=== PATIENT | male | born 1965 | race Caucasian/White ===

== ENCOUNTER 2016-10-29 13:25 | Emergency (ER) | payer MEDICARE ==
[2016-10-29 13:36] VITALS: BP 132/66; PULSE 77; TEMP 97.6; BMI 63.2
--- NOTE | 2016-10-29 14:06 | PDOC ---
History of Present Illness <Antony Foley - Last Filed: 10/29/16 14:39> - History of Present Illness Initial Comments: 10/29/16 14:38 The patient is a 51 year old male with a past medical hx of diabetes, HTN who presents to the ED for evaluation of low blood gas levels. The patient reports he is planning on having gastric sleeve surgery and notes he must get clearance from many doctors so he went to his [facility] today for clearance. The patient was given a prescription to have his blood gas levels measured. His levels were low and he was sent to the ED evaluation. The patient reports he feels fine and only feels short of breath only on exertion. The patient denies fever, chills, headache, dizziness, chest pain The patient denies nausea, vomiting, abdominal pain Allergies: NKDA Social: Denies tobacco use <Xiomy Hernandez - Last Filed: 10/29/16 14:45> - General Chief Complaint: Shortness of Breath Stated Complaint: SOB (PCP SENT) Time Seen by Provider: 10/29/16 14:06 Past History - Past Medical History Anemia: No Asthma: No Cancer: No Cardiac Disorders: No CVA: No COPD: No CHF: No Dementia: No Diabetes: Yes GI Disorders: No Disorders: No HTN: Yes Hypercholesterolemia: Yes Liver Disease: No Psychiatric Problems: Yes Seizures: No Thyroid Disease: No - Surgical History Abdominal Surgery: Yes (LAP BAND.) Cholecystectomy: Yes - Psycho/Social/Smoking Cessation Hx Anxiety: No Suicidal Ideation: No Smoking History: Never smoked Have you smoked in the past 12 months: No Hx Alcohol Use: Yes (SOCIAL) Drug/Substance Use Hx: No Substance Use Type: None <Antony Foley - Last Filed: 10/29/16 14:39> <Xiomy Hernandez - Last Filed: 10/29/16 14:45> - Past Medical History Allergies/Adverse Reactions: Allergies Allergy/AdvReac Type Severity Reaction Status Date / Time No Known Allergies Allergy Verified 10/29/16 13:36 Home Medications: Ambulatory Orders Aripiprazole [Abilify] 5 mg PO DAILY 07/26/14 Atenolol [Tenormin -] 50 mg PO DAILY 07/26/14 Bupropion HCl [Wellbutrin Xl -] 300 mg PO DAILY 07/26/14 Fluoxetine HCl [Prozac -] 40 mg PO DAILY 07/26/14 Simvastatin [Zocor -] 20 mg PO HS 07/26/14 Metformin HCl 500 mg PO DAILY 10/29/16 Oxycodone HCl/Acetaminophen [Percocet 5-325 mg Tablet] 2 tab PO PRN 10/29/16 Review of Systems - Review of Systems Able to Perform ROS?: Yes Comments:: 10/29/16 14:38 GENERAL/CONSTITUTIONAL: No fever or chills. No weakness. HEAD, EYES, EARS, NOSE AND THROAT: No change in vision. No ear pain or discharge. No sore throat. CARDIOVASCULAR: No chest pain or shortness of breath. RESPIRATORY: +Dyspnea on exertion No cough, wheezing, or hemoptysis. GASTROINTESTINAL: No nausea, vomiting, diarrhea or constipation. GENITOURINARY: No dysuria, frequency, or change in urination. MUSCULOSKELETAL: No joint or muscle swelling or pain. No neck or back pain. SKIN: No rash NEUROLOGIC: No headache, vertigo, loss of consciousness, or change in strength/ sensation. ENDOCRINE: No increased thirst. No abnormal weight change. HEMATOLOGIC/LYMPHATIC: No anemia, easy bleeding, or history of blood clots. ALLERGIC/IMMUNOLOGIC: No hives or skin allergy. <Xiomy Hernandez - Last Filed: 10/29/16 14:45> *Physical Exam - Vital Signs Last Vital Signs Temp Pulse Resp BP Pulse Ox 97.6 F 77 20 132/66 90 L 10/29/16 13:31 10/29/16 13:31 10/29/16 13:31 10/29/16 13:31 10/29/16 13:31 <Antony Foley - Last Filed: 10/29/16 14:39> - Vital Signs Last Vital Signs Temp Pulse Resp BP Pulse Ox 97.6 F 77 20 132/66 92 L 10/29/16 13:31 10/29/16 13:31 10/29/16 13:31 10/29/16 13:31 10/29/16 14:35 - Physical Exam Comments: 10/29/16 14:39 GENERAL: Awake, alert, and fully oriented, in no acute distress HEAD: No signs of trauma EYES: PERRLA, EOMI, sclera anicteric, conjunctiva clear ENT: Auricles normal inspection, hearing grossly normal, nares patent, oropharynx clear without exudates. Moist mucosa NECK: Normal ROM, supple, no lymphadenopathy, JVD, or masses LUNGS:+Wheezing in all lung curiel. No crackles HEART: Regular rate and rhythm, normal S1 and S2, no murmurs, rubs or gallops ABDOMEN: +Obese. Soft, nontender, normoactive bowel sounds. No guarding, no rebound. No masses EXTREMITIES: Normal range of motion, no edema. No clubbing or cyanosis. No cords, erythema, or tenderness NEUROLOGICAL: Cranial nerves II through XII grossly intact. Normal speech, normal gait SKIN: Warm, Dry, normal turgor, no rashes or lesions noted. <Xiomy Hernandez - Last Filed: 10/29/16 14:45> Medical Decision Making - Medical Decision Making 10/29/16 14:45 The patient is a 51 year old male with a past medical hx of diabetes, HTN who presents to the ED for evaluation of low blood gas levels. The patient reports he was given a prescription by the [facility] to have his blood gas levels measured. The patient had his levels measured today, which were found to be low. The patients levels were found to be pH: 7.3, pCO2: 53, pO2: 52, HCO3: 26. The patient was sent to the ED for further evaluation. Called Dr. Guzman (patients [facility]) and discussed the patient's case. Dr. Guzman reports he did not see the patient in the office today but will see the patient tomorrow morning at 10. The patient agrees to this plan for discharge and will follow up with Dr. Guzman in the morning. The patient understand and agrees to this plan for discharge. All questions answered. <Xiomy Hernandez - Last Filed: 10/29/16 14:45> *DC/Admit/Observation/Transfer - Discharge Dispostion Admit: No - Attestations Physician Attestion: 10/29/16 14:06 I, Dr. Antony Foley, attest that this document has been prepared under my direction and personally reviewed by me in its entirety. I further attest, that it accurately reflects all work, treatment, procedures and medical decision -making performed by me. <Antony Foley - Last Filed: 10/29/16 14:39> - Attestations Scribe Attestion: 10/29/16 14:38 Documentation prepared by Xiomy Hernandez, acting as medical asst for Antony Foley MD/DO. <Xiomy Hernandez - Last Filed: 10/29/16 14:45> Diagnosis at time of Disposition: Hypoxia, COPD mixed type - Discharge Dispostion Disposition: HOME - Referrals Referrals: Svetlana Etienne MD [Primary Care Provider] - Nino Guzman MD [Staff Physician] - - Patient Instructions Printed Discharge Instructions: DI for Chronic Obstructive Pulmonary Disease Additional Instructions: Nino, Your oxygen level in your blood is low. It is most probably low most of the time. This needs to be sorted out more fully by your computer repair engineer. See him in his office tomorrow at 10:00AM. Return to us if any problems. Best- Dr. Antony Foley
== END 2016-10-29 14:51 | disposition home or self-care (01) ==
LOC: JER 13:25
DX: R09.02 Hypoxemia (principal); J44.9 Chronic obstructive pulmonary disease, unspecified; E11.9 Type 2 diabetes mellitus without complications; I10 Essential (primary) hypertension; E78.00 Pure hypercholesterolemia, unspecified; F99 Mental disorder, not otherwise specified
CPT/HCPCS: 99282-25

== ENCOUNTER 2016-11-29 11:54 | Emergency (ER) | payer MEDICARE ==
[2016-11-29 12:01] VITALS: BMI 63.2
--- NOTE | 2016-11-29 13:33 | PDOC ---
History of Present Illness - General History Source: Patient Exam Limitations: No Limitations - History of Present Illness Initial Comments: CHIEF COMPLAINT: 51 y/o afebrile, morbidly obese male with PMH HTN, HLD, NIDDM c/o leg swelling and burning. HISTORY OF PRESENT ILLNESS: The patient states he normally has cellulitis of both of his lower extremities but over the past 3 days it has gotten progressively worse and his feet and ankles are burning. He states he also has minimal oozing from the legs. He denies f/c, n/v/d, streaking, cough, hemoptysis, CP, palpitations. Vital signs on arrival are notable for O2 sat of 94% on RA. REVIEW OF SYSTEMS: GENERAL/CONSTITUTIONAL: No fever/chills. No weakness. No weight change. HEAD, EYES, EARS, NOSE AND THROAT: No change in vision. No ear pain or discharge. No sore throat. CARDIOVASCULAR: No chest pain or shortness of breath. RESPIRATORY: No cough, wheezing, or hemoptysis. GASTROINTESTINAL: No abd pain, nausea, vomiting, diarrhea. GENITOURINARY: No dysuria, frequency, or change in urination. MUSCULOSKELETAL: +lower leg swelling and redness. No neck or back pain. SKIN: No rash or easy bruising. NEUROLOGIC: No headache, vertigo, loss of consciousness, or loss of sensation. PHYSICAL EXAM: VITAL_SIGNS: within normal limits GENERAL_APPEARANCE: alert, cooperative, no obvious discomfort. The patient is a morbidly obese, ambulatory male. MENTAL_STATUS: speech clear, oriented X 3, responds appropriately to questions. NEURO: motor intact and sensory intact in injured extremity. EXTREMITIES: non pitting, erythematous edema of bilateral lower extremities up to the knees. Multiple open sores on LEs without active bleeding SKIN: warm, dry, good color. <Liana Cabrera - Last Filed: 11/29/16 18:54> <Sneha Su - Last Filed: 12/01/16 14:28> - General Chief Complaint: Wound Stated Complaint: CELLULITIS, BOTH LEGS Time Seen by Provider: 11/29/16 13:11 Past History - Past Medical History Anemia: No Asthma: No Cancer: No Cardiac Disorders: No CVA: No COPD: No CHF: No Dementia: No Diabetes: Yes GI Disorders: No Disorders: No HTN: Yes Hypercholesterolemia: Yes Liver Disease: No Psychiatric Problems: Yes Seizures: No Thyroid Disease: No Other medical history: obesity - Surgical History Abdominal Surgery: Yes (LAP BAND.) Cholecystectomy: Yes - Psycho/Social/Smoking Cessation Hx Anxiety: No Suicidal Ideation: No Smoking History: Never smoked Have you smoked in the past 12 months: No Information on smoking cessation initiated: No Hx Alcohol Use: No Drug/Substance Use Hx: No Substance Use Type: None <Liana Cabrera - Last Filed: 11/29/16 18:54> <Sneha Su - Last Filed: 12/01/16 14:28> - Past Medical History Allergies/Adverse Reactions: Allergies Allergy/AdvReac Type Severity Reaction Status Date / Time No Known Allergies Allergy Verified 11/29/16 12:01 Home Medications: Ambulatory Orders Aripiprazole [Abilify] 5 mg PO DAILY 07/26/14 Atenolol [Tenormin -] 25 mg PO DAILY 07/26/14 Bupropion HCl [Wellbutrin Xl -] 300 mg PO DAILY 07/26/14 Fluoxetine HCl [Prozac -] 40 mg PO DAILY 07/26/14 Metformin HCl 500 mg PO DAILY 10/29/16 Atorvastatin Calcium [Lipitor] 10 mg PO HS 11/29/16 Cholecalciferol (Vitamin D3) [Vitamin D3 -] 1,000 unit PO DAILY 11/29/16 Clindamycin [Cleocin -] 300 mg PO Q6HPO #28 capsule 11/29/16 Fluticasone/Vilanterol [Breo Ellipta 100-25 Mcg INH] 1 each IH DAILY 11/29/16 Lisinopril [Zestril] 2.5 mg PO DAILY 11/29/16 Multivitamin [Poly-Vitamin] 1 each PO DAILY 11/29/16 Naproxen 500 mg PO BID PRN 11/29/16 Oxycodone HCl/Acetaminophen [Percocet 5-325 mg Tablet] 1 - 2 tab PO Q6H #10 tablet MDD 5 11/29/16 Silver Sulfadiazine [Silvadene] 1 applic TP BID 11/29/16 *Physical Exam - Vital Signs Last Vital Signs Temp Pulse Resp BP Pulse Ox 97.8 F 84 22 153/72 94 L 11/29/16 11:59 11/29/16 11:59 11/29/16 11:59 11/29/16 11:59 11/29/16 11:59 <Liana Cabrera - Last Filed: 11/29/16 18:54> - Vital Signs Last Vital Signs Temp Pulse Resp BP Pulse Ox 98.5 F 89 20 138/82 100 11/29/16 15:55 11/29/16 18:58 11/29/16 18:58 11/29/16 18:58 11/29/16 18:58 <Sneha Su - Last Filed: 12/01/16 14:28> ED Treatment Course - LABORATORY CBC & Chemistry Diagram: 11/29/16 14:25 11/29/16 14:25 <Liana Cabrera - Last Filed: 11/29/16 18:54> - LABORATORY CBC & Chemistry Diagram: 11/29/16 14:25 11/29/16 14:25 - ADDITIONAL ORDERS Additional order review: 11/29/16 14:25 RBC 4.64 MCV 85.7 MCHC 31.9 L RDW 16.4 H MPV 6.6 L Neutrophils % 84.4 H Lymphocytes % 6.9 L D Monocytes % 7.0 Eosinophils % 1.0 Basophils % 0.7 - Medications Given in the ED: ED Medications Discontinued Medications Generic Name Dose Route Start Last Admin Trade Name Doris PRN Reason Stop Dose Admin Clindamycin Phosphate 50 mls @ 100 mls/hr 11/29/16 15:22 11/29/16 15:31 Cleocin 600 Mg Premix Ivpb - IVPB 11/29/16 15:51 100 mls/hr ONCE ONE Administration Oxycodone/Acetaminophen 2 combo 11/29/16 14:06 11/29/16 14:08 Percocet 5/325 - PO 11/29/16 14:07 2 combo ONCE ONE Administration <Sneha Su - Last Filed: 12/01/16 14:28> Medical Decision Making - Medical Decision Making A/P: 51 y/o male with b/l LE edema/cellulitis. Plan is as follows: 1. Labs Elevated WBC count with left shift. Pt is afebrile. Will give first dose of IV clinda Pt asking for pain medication; will give PO Percocet Spoke with Dr. Almanza, bonded strand operator for patient's PCP Dr. Etienne. She would like dopplers of his LEs. If negative she suggests discharge to home with rx for clinda and follow up with Dr. Etienne in his office on Thursday morning. Venous doppler b/l LE IMPRESSION: No evidence of DVT b/l lower extremities. Gave the patient the results. Will discharge to home with fx for clinda and instructed him to take entire course. Informed him that Dr. Etienne wants to see him in the office on Thursday and he confirms he will go. Instructed him to return to the ER with any worsening or concerning symptoms. The patient verbalizes understanding of all instructions, has no further questions and is awaiting discharge. <Liana Cabrera - Last Filed: 11/29/16 18:54> *DC/Admit/Observation/Transfer <Liana Cabrera - Last Filed: 11/29/16 18:54> - Attestations Physician Attestion: I reviewed the case with the mid-level practitioner and agree with the mid- level practitioner's assessment, diagnosis and disposition. <Sneha Su - Last Filed: 12/01/16 14:28> Diagnosis at time of Disposition: Cellulitis Qualifiers: Site of cellulitis: extremity Site of cellulitis of extremity: lower extremity Laterality: unspecified laterality Qualified Code(s): L03.119 - Cellulitis of unspecified part of limb - Discharge Dispostion Disposition: HOME Condition at time of disposition: Good - Prescriptions Prescriptions: Clindamycin [Cleocin -] 300 mg PO Q6HPO #28 capsule Oxycodone HCl/Acetaminophen [Percocet 5-325 mg Tablet] 1 - 2 tab PO Q6H #10 tablet MDD 5 - Referrals Referrals: Svetlana Etienne MD [Primary Care Provider] - (Go to office on Thursday) - Patient Instructions Printed Discharge Instructions: DI for Cellulitis -- Adult Additional Instructions: Discharge Instructions: -Take Clindamycin as prescribed -Take percocet if needed for pain; may cause drowsiness -Dr. Etienne wants to see you in the office on Thursday -Return to the ER immediately with any worsening or concerning symptoms
[2016-11-29] MEDS ORDERED: OXYCODONE/APAP 5/325MG COMBO TABLET PO ONE (14:06)
[2016-11-29] MEDS ORDERED: OXYCODONE/APAP 5/325MG COMBO TABLET ONE (14:07)
[2016-11-29 14:35] LABS: BASOPHIL 0.7 % (0-2.0); MCH 27.3 pg (25.7-33.7); MCHC 31.9 g/dl (32.0-35.9); MEAN CELL VOLUME 85.7 fl (80-96); MEAN PLT VOLUME 6.6 fl (7.5-11.1); NEUTROPHILS 84.4 % (42.8-82.8); PLATELET COUNT 255 K/MM3 (134-434); RDW 16.4 % (11.9-15.9); WHITE BLOOD COUNT 11.2 K/mm3 (4.0-10.0)
[2016-11-29 15:07] LABS: ALBUMIN 3.2 g/dl (3.4-5.0); ALK PHOS 153 U/L (45-117); ANION GAP 10 (8-16); BILIRUBIN,TOTAL 1.3 mg/dL (0.2-1.0); CALCIUM 9.3 mg/dL (8.5-10.1); CO2 28 mmol/L (21-32); COCKROFT - GAULT 248.85; CREATININE 0.9 mg/dL (0.7-1.3); GLUCOSE,RANDOM 87 mg/dL (74-106); SGOT/AST 15 U/L (15-37); SGPT/ALT 14 U/L (12-78); TOT PROT 7.5 g/dl (6.4-8.2)
[2016-11-29] MEDS ORDERED: CLINDAMYCIN 600MG PREMIX IVPB 50 ML IVPB ONE ×2 (15:22→15:30)
[2016-11-29 18:25] VITALS: TEMP 98.5
[2016-11-29 18:58] VITALS: BP 138/82; PULSE 89
== END 2016-11-29 18:59 | disposition home or self-care (01) ==
LOC: JER 11:54
DX: L03.116 Cellulitis of left lower limb (principal); L03.115 Cellulitis of right lower limb; I10 Essential (primary) hypertension; E11.9 Type 2 diabetes mellitus without complications; Z79.84 Long term (current) use of oral hypoglycemic drugs; E78.00 Pure hypercholesterolemia, unspecified; E66.01 Morbid (severe) obesity due to excess calories; Z68.44 Body mass index [BMI] 60.0-69.9, adult
CPT/HCPCS: 36415; 80053; 85025; 93970-TC; 96365; 99284-25

== ENCOUNTER 2016-12-22 04:53 | Inpatient (IN) | payer MEDICARE, OTHER ==
--- NOTE | 2016-12-22 05:20 | PDOC ---
History of Present Illness - General History Source: Patient Exam Limitations: No Limitations - History of Present Illness Initial Comments: 12/22/16 06:02 The patient is a 51 year old male with a past medical history of NIDDM, HTN, COPD, emphysema and hld who presents to the ED for bilateral lower extremity cellulitis. Patient reports that he was seen by Dr. Etienne and was told that he needed to present to the ED for IV abx for cellulitis. Patient states that he went fishing on 4 days ago instead. He states that his legs got numb. He notes that he cannot ambulate and has been bedridden for 2 days. Patient was trying to use the shower today and wash his legs as he began to feel lightheaded. Patient reports bilateral LE redness and swelling.. He states that he took percocet to alleviate the pain. The patient denies fever, chills, headache, dizziness, chest pain The patient denies nausea, vomiting, abdominal pain Allergies: NKDA Social: Denies tobacco use PCP: Dr. Etienne <Nguyen Guillen - Last Filed: 12/22/16 07:00> <Yudy Noel - Last Filed: 12/26/16 19:51> - General Stated Complaint: LEG PAIN Time Seen by Provider: 12/22/16 05:01 Past History <Nguyen Guillen - Last Filed: 12/22/16 07:00> - Past Medical History Anemia: No Asthma: No Cancer: No Cardiac Disorders: No CVA: No COPD: No CHF: No Dementia: No Diabetes: Yes GI Disorders: No Disorders: No HTN: Yes Hypercholesterolemia: Yes Liver Disease: No Psychiatric Problems: Yes Seizures: No Thyroid Disease: No - Surgical History Abdominal Surgery: Yes (LAP BAND.) Cholecystectomy: Yes - Psycho/Social/Smoking Cessation Hx Anxiety: No Suicidal Ideation: No Smoking History: Never smoked Have you smoked in the past 12 months: No Hx Alcohol Use: No Drug/Substance Use Hx: No Substance Use Type: None <Yudy Noel - Last Filed: 12/26/16 19:51> - Past Medical History Allergies/Adverse Reactions: Allergies Allergy/AdvReac Type Severity Reaction Status Date / Time No Known Allergies Allergy Verified 11/29/16 12:01 Home Medications: Ambulatory Orders Aripiprazole [Abilify] 5 mg PO DAILY 07/26/14 Atenolol [Tenormin -] 25 mg PO DAILY 07/26/14 Bupropion HCl [Wellbutrin Xl -] 300 mg PO DAILY 07/26/14 Fluoxetine HCl [Prozac -] 40 mg PO DAILY 07/26/14 Metformin HCl 500 mg PO DAILY 10/29/16 Atorvastatin Calcium [Lipitor] 10 mg PO HS 11/29/16 Cholecalciferol (Vitamin D3) [Vitamin D3 -] 1,000 unit PO DAILY 11/29/16 Fluticasone/Vilanterol [Breo Ellipta 100-25 Mcg INH] 1 each IH DAILY 11/29/16 Lisinopril [Zestril] 2.5 mg PO DAILY 11/29/16 Multivitamin [Poly-Vitamin] 1 each PO DAILY 11/29/16 Oxycodone HCl/Acetaminophen [Percocet 5-325 mg Tablet] 1 - 2 tab PO Q6H #10 tablet MDD 5 11/29/16 Silver Sulfadiazine [Silvadene] 1 applic TP BID 11/29/16 Review of Systems - Review of Systems Able to Perform ROS?: Yes Comments:: 12/22/16 06:03 GENERAL/CONSTITUTIONAL: No fever or chills. No weakness. HEAD, EYES, EARS, NOSE AND THROAT: No change in vision. No ear pain or discharge. No sore throat. CARDIOVASCULAR: No chest pain or shortness of breath. RESPIRATORY: No cough, wheezing, or hemoptysis. GASTROINTESTINAL: No nausea, vomiting, diarrhea or constipation. GENITOURINARY: No dysuria, frequency, or change in urination. MUSCULOSKELETAL: No joint or muscle swelling or pain. No neck or back pain. SKIN: (+)bilateraly LE redness. No rash NEUROLOGIC: No headache, vertigo, loss of consciousness, or change in strength/ sensation. ENDOCRINE: No increased thirst. No abnormal weight change. HEMATOLOGIC/LYMPHATIC: No anemia, easy bleeding, or history of blood clots. ALLERGIC/IMMUNOLOGIC: No hives or skin allergy. <Nguyen Guillen - Last Filed: 12/22/16 07:00> *Physical Exam - Vital Signs Last Vital Signs Temp Pulse Resp BP Pulse Ox 97.9 F 73 20 106/69 98 12/22/16 05:41 12/22/16 05:41 12/22/16 05:41 12/22/16 05:41 12/22/16 05:47 - Physical Exam Comments: 12/22/16 06:03 GENERAL: Awake, alert, and fully oriented, in no acute distress HEAD: No signs of trauma EYES: PERRLA, EOMI, sclera anicteric, conjunctiva clear ENT: Auricles normal inspection, hearing grossly normal, nares patent, oropharynx clear without exudates. Moist mucosa NECK: Normal ROM, supple, no lymphadenopathy, JVD, or masses LUNGS: Breath sounds equal, clear to auscultation bilaterally. No wheezes, and no crackles HEART: Regular rate and rhythm, normal S1 and S2, no murmurs, rubs or gallops ABDOMEN: Soft, nontender, normoactive bowel sounds. No guarding, no rebound. No masses EXTREMITIES: (+)bilateral lower extremity erythema and edema. Normal range of motion. No clubbing or cyanosis. No cords or tenderness NEUROLOGICAL: Cranial nerves II through XII grossly intact. Normal speech. SKIN: (+)Open, red ,weeping skin of bilateral lower extremities. Warm, Dry, normal turgor, no rashes. <Nguyen Guillen - Last Filed: 12/22/16 07:00> ED Treatment Course - LABORATORY CBC & Chemistry Diagram: 12/22/16 05:37 12/22/16 05:37 - ADDITIONAL ORDERS Additional order review: 12/22/16 05:37 RBC 4.32 MCV 88.0 MCHC 30.9 L RDW 17.5 H MPV 7.4 L D Neutrophils % 85.8 H Lymphocytes % 5.8 L Monocytes % 6.7 Eosinophils % 1.1 Basophils % 0.6 <Nguyen Guillen - Last Filed: 12/22/16 07:00> - LABORATORY CBC & Chemistry Diagram: 12/25/16 06:30 12/25/16 06:30 <Yudy Noel - Last Filed: 12/26/16 19:51> Medical Decision Making - Medical Decision Making 12/22/16 06:05 Pt comes with bilateral cellulitis. Pt also complains of dizziness. 12/22/16 07:04 WBC elevated. D-dimer elevated. Sono duplex of bilat legs pending. EKG pending. Chem pending, Pt needs to be admitted for IV abx. <Yudy Noel - Last Filed: 12/26/16 19:51> *DC/Admit/Observation/Transfer - Attestations Scribe Attestion: 12/22/16 06:0 Documentation prepared by JOHN Fields, acting as medical scientific officer for Yudy Noel MD. <Nguyen Guillen - Last Filed: 12/22/16 07:00> <Yudy Noel - Last Filed: 12/26/16 19:51> Diagnosis at time of Disposition: Cellulitis - Discharge Dispostion Condition at time of disposition: Stable - Referrals
[2016-12-22 05:46] LABS: BASOPHIL 0.6 % (0-2.0); EOSINOPHIL 1.1 % (0-4.5); MCH 27.2 pg (25.7-33.7); MCHC 30.9 g/dl (32.0-35.9); MEAN PLT VOLUME 7.4 fl (7.5-11.1); NEUTROPHILS 85.8 % (42.8-82.8); PLATELET COUNT 213 K/MM3 (134-434); RDW 17.5 % (11.9-15.9); WHITE BLOOD COUNT 12.1 K/mm3 (4.0-10.0)
[2016-12-22] MEDS ORDERED: VANCOMYCIN 1,000 MG in DEXTROSE 5%-WATER - 250 ML IVPB ONE (06:06)
[2016-12-22] MEDS ORDERED: AMPICILLIN NA/SULBACTAM NA 1.5 GM in SODIUM CHLORIDE 100 ML IVPB ONE (06:06)
[2016-12-22] MEDS ORDERED: VANCOMYCIN 1 GRAM (PRE-DOCKED) 250 ML IVPB ONE (06:13)
[2016-12-22] MEDS ORDERED: OXYCODONE/APAP 5/325MG COMBO TABLET PO ONE (07:00)
[2016-12-22] MEDS ORDERED: OXYCODONE/APAP 5/325MG COMBO TABLET ONE (07:07)
[2016-12-22 08:27] LABS: ALBUMIN 3.1 g/dl (3.4-5.0); ANION GAP 12 (8-16); CALCIUM 8.2 mg/dL (8.5-10.1); CO2 22 mmol/L (21-32); GLUCOSE,RANDOM 111 mg/dL (74-106)
[2016-12-22 08:34] LABS: ALK PHOS 176 U/L (45-117); COCKROFT - GAULT 135.51; CREATININE 1.8 mg/dL (0.7-1.3); SGOT/AST 20 U/L (15-37); SGPT/ALT 16 U/L (12-78); TOT PROT 7.2 g/dl (6.4-8.2); TROPONIN I < 0.02 ng/ml (0.00-0.05)
--- NOTE | 2016-12-22 10:28 | EKG ---
Test Reason : Blood Pressure : / mmHG Vent. Rate : 073 BPM Atrial Rate : 073 BPM P-R Int : 190 ms QRS Dur : 108 ms QT Int : 366 ms P-R-T Axes : 045 090 053 degrees QTc Int : 403 ms NORMAL SINUS RHYTHM WITH SINUS ARRHYTHMIA RIGHTWARD AXIS T WAVE ABNORMALITY, CONSIDER ANTERIOR ISCHEMIA ABNORMAL ECG WHEN COMPARED WITH ECG OF 26-JUL-2014 21:02, RIGHTWARD AXIS WITH T WAVE INVERSION IS SEEN Confirmed by STACEY LOZANO, MIKE ([id number]) on 12/22/2016 10:27:51 AM Referred By: Confirmed By:MIKE IBARRA MD
[2016-12-22] MEDS ORDERED: SODIUM CHLORIDE 1,000 ML IV STA (11:00)
--- NOTE | 2016-12-22 11:26 | PDOC ---
*Physical Exam - Vital Signs Last Vital Signs Temp Pulse Resp BP Pulse Ox 97.9 F 73 20 106/69 98 12/22/16 05:41 12/22/16 05:41 12/22/16 05:41 12/22/16 05:41 12/22/16 05:47 ED Treatment Course - LABORATORY CBC & Chemistry Diagram: 12/22/16 05:37 12/22/16 05:37 - ADDITIONAL ORDERS Additional order review: Laboratory Results 12/22/16 12/22/16 05:37 05:37 D-Dimer 372 H Sodium 129 L Potassium 5.8 H Chloride 95 L Carbon Dioxide 22 D Anion Gap 12 BUN 34 H D Creatinine 1.8 H D Creat Clearance w eGFR 39.82 Random Glucose 111 H D Calcium 8.2 L Total Bilirubin 1.0 D AST 20 D ALT 16 Alkaline Phosphatase 176 H Creatine Kinase 51 Troponin I < 0.02 Total Protein 7.2 Albumin 3.1 L 12/22/16 05:37 RBC 4.32 MCV 88.0 MCHC 30.9 L RDW 17.5 H MPV 7.4 L D Neutrophils % 85.8 H Lymphocytes % 5.8 L Monocytes % 6.7 Eosinophils % 1.1 Basophils % 0.6 - Medications Given in the ED: ED Medications Discontinued Medications Generic Name Dose Route Start Last Admin Trade Name Rosendoq PRN Reason Stop Dose Admin Vancomycin HCl 1,000 mg/ 250 mls @ 250 mls/hr 12/22/16 06:06 12/22/16 06:39 Dextrose IVPB 12/22/16 07:05 250 mls/hr ONCE ONE Administration Protocol Ampicillin Sodium/Sulbactam 100 mls @ 200 mls/hr 12/22/16 06:06 12/22/16 06:11 Sodium 1.5 gm/ Sodium Chloride IVPB 12/22/16 06:35 200 mls/hr ONCE ONE Administration Oxycodone/Acetaminophen 2 combo 12/22/16 07:00 12/22/16 07:05 Percocet 5/325 - PO 12/22/16 07:01 2 combo ONCE ONE Administration Progress Note - Progress Note Progress Note: The patient was endorsed to me at [address] Tiwari pending labs and admission. The white blood cell count is 12,000. The sodium is 129 and the creatinine is 1.8. The patient was started on IV fluids normal saline. He is still pending lower extremity duplex. The plan is to admit to medicine for IV antibiotics for cellulitis. *DC/Admit/Observation/Transfer Diagnosis at time of Disposition: Cellulitis - Discharge Dispostion Condition at time of disposition: Stable Admit: Yes - Referrals Referrals: Svetlana Etienne MD [Primary Care Provider] - - Patient Instructions - Post Discharge Activity
[2016-12-22 16:41] VITALS: BMI 65.2
[2016-12-22] MEDS ORDERED: oxyCODONE HCL 5 MG TABLET PO ONE (17:15)
[2016-12-22] MEDS ORDERED: ACETAMINOPHEN 325 MG TABLET (FP) PO ONE (17:15)
--- NOTE | 2016-12-22 19:56 | HP ---
Admitting History and Physical - Primary Care Physician PCP: Harsh Prescott - Admission History of Present Illness: 51 year old male with a past medical history of NIDDM, HTN, COPD, emphysema and hld who presents to the ED for bilateral lower extremity cellulitis. Patient reports that he was seen by Dr. Etienne and was told that he needed to present to the ED for IV abx for cellulitis. Patient states that he went fishing on 4 days ago instead. He states that his legs got numb. He notes that he cannot ambulate and has been bedridden for 2 days. Patient was trying to use the shower today and wash his legs as he began to feel lightheaded. Patient reports bilateral LE redness and swelling.. He states that he took percocet to alleviate the pain. - Past Medical History Cardiovascular: Yes: HTN Pulmonary: Yes: COPD Endocrine: Yes: Diabetes Mellitus - Smoking History Smoking history: Never smoked Have you smoked in the past 12 months: No - Alcohol/Substance Use Hx Alcohol Use: No Home Medications - Allergies Allergies/Adverse Reactions: Allergies Allergy/AdvReac Type Severity Reaction Status Date / Time No Known Allergies Allergy Verified 11/29/16 12:01 - Home Medications Home Medications: Ambulatory Orders Aripiprazole [Abilify] 5 mg PO DAILY 07/26/14 Atenolol [Tenormin -] 25 mg PO DAILY 07/26/14 Bupropion HCl [Wellbutrin Xl -] 300 mg PO DAILY 07/26/14 Fluoxetine HCl [Prozac -] 40 mg PO DAILY 07/26/14 Metformin HCl 500 mg PO DAILY 10/29/16 Atorvastatin Calcium [Lipitor] 10 mg PO HS 11/29/16 Cholecalciferol (Vitamin D3) [Vitamin D3 -] 1,000 unit PO DAILY 11/29/16 Fluticasone/Vilanterol [Breo Ellipta 100-25 Mcg INH] 1 each IH DAILY 11/29/16 Lisinopril [Zestril] 2.5 mg PO DAILY 11/29/16 Multivitamin [Poly-Vitamin] 1 each PO DAILY 11/29/16 Oxycodone HCl/Acetaminophen [Percocet 5-325 mg Tablet] 1 - 2 tab PO Q6H #10 tablet MDD 5 11/29/16 Silver Sulfadiazine [Silvadene] 1 applic TP BID 11/29/16 Family Disease History - Family Disease History Family Disease History: Heart Disease: Mother ( age 73), Sister, [place]: Mother Physical Examination Vital Signs: Vital Signs Temperature 98 F 12/22/16 16:35 Pulse Rate 75 12/22/16 16:35 Respiratory Rate 18 12/22/16 16:35 Blood Pressure 126/69 12/22/16 16:35 O2 Sat by Pulse Oximetry (%) 96 12/22/16 16:45 Constitutional: Yes: No Distress HENT: Yes: Atraumatic Neck: Yes: Supple Cardiovascular: Yes: Regular Rate and Rhythm Respiratory: Yes: CTA Bilaterally Gastrointestinal: Yes: Normal Bowel Sounds Extremities: Yes: Other (cellulitis b/l loi) Edema: LLE: 3+, RLE: 3+ Problem List - Problems (1) Cellulitis Assessment/Plan: iv abx wound care id consult Code(s): L03.90 - CELLULITIS, UNSPECIFIED (2) COPD mixed type Assessment/Plan: duo nebs prn Code(s): J44.9 - CHRONIC OBSTRUCTIVE PULMONARY DISEASE, UNSPECIFIED (3) Diabetes Assessment/Plan: on bgms, insulin Code(s): E11.9 - TYPE 2 DIABETES MELLITUS WITHOUT COMPLICATIONS (4) HLD (hyperlipidemia) Assessment/Plan: on meds stable Code(s): E78.5 - HYPERLIPIDEMIA, UNSPECIFIED (5) HTN (hypertension) Assessment/Plan: on meds stable Code(s): I10 - ESSENTIAL (PRIMARY) HYPERTENSION Assessment/Plan Laboratory Tests 12/22/16 12/22/16 12/22/16 05:37 05:37 05:37 WBC 12.1 H RBC 4.32 Hgb 11.8 Hct 38.0 MCV 88.0 MCHC 30.9 L RDW 17.5 H Plt Count 213 MPV 7.4 L D Neutrophils % 85.8 H Lymphocytes % 5.8 L Monocytes % 6.7 Eosinophils % 1.1 Basophils % 0.6 D-Dimer 372 H Sodium 129 L Potassium 5.8 H Chloride 95 L Carbon Dioxide 22 D Anion Gap 12 BUN 34 H D Creatinine 1.8 H D Creat Clearance w eGFR 39.82 Random Glucose 111 H D Calcium 8.2 L Total Bilirubin 1.0 D AST 20 D ALT 16 Alkaline Phosphatase 176 H Creatine Kinase 51 Troponin I < 0.02 Total Protein 7.2 Albumin 3.1 L
[2016-12-22] MEDS ORDERED: OXYCODONE/APAP 5/325MG COMBO TABLET PO PRN (20:01)
--- NOTE | 2016-12-22 20:02 | CONSULT ---
Consult Consult Specialty:: infectious diseases Reason for Consultation:: bilateral cellulitis of the legs - History of Present Illness Chief Complaint: pain and swelling of the legs History of Present Illness: 51 year old male with a past medical history of NIDDM, HTN, COPD, emphysema and hld who presents to the ED for bilateral lower extremity cellulitis. Patient reports that he was seen by his primary care and was told that he needed IV abx Patient states that he went fishing on 4 days ago instead. He states that his legs got numb. He notes that he cannot ambulate and has been bedridden for 2 days. Patient was trying to use the shower today and wash his legs as he began to feel lightheaded. Patient reports bilateral LE redness and swelling.. He states that he took percocet to alleviate the pain. patient is very obese and not able to look at the places and his scrotum it seems that the cellulitis has extended to the scrotum and lower adominal wall --patient does not have any idea that it has extended so far - History Source History Provided By: Patient, Medical Record Limitations to Obtaining History: No Limitations - Past Medical History Cardio/Vascular: Yes: HTN Pulmonary: Yes: COPD Endocrine: Yes: Diabetes Mellitus - Alcohol/Substance Use Hx Alcohol Use: No - Smoking History Smoking history: Never smoked Have you smoked in the past 12 months: No Home Medications - Allergies Allergies/Adverse Reactions: Allergies Allergy/AdvReac Type Severity Reaction Status Date / Time No Known Allergies Allergy Verified 11/29/16 12:01 - Home Medications Home Medications: Ambulatory Orders Aripiprazole [Abilify] 5 mg PO DAILY 07/26/14 Atenolol [Tenormin -] 25 mg PO DAILY 07/26/14 Bupropion HCl [Wellbutrin Xl -] 300 mg PO DAILY 07/26/14 Fluoxetine HCl [Prozac -] 40 mg PO DAILY 07/26/14 Metformin HCl 500 mg PO DAILY 10/29/16 Atorvastatin Calcium [Lipitor] 10 mg PO HS 11/29/16 Cholecalciferol (Vitamin D3) [Vitamin D3 -] 1,000 unit PO DAILY 11/29/16 Fluticasone/Vilanterol [Breo Ellipta 100-25 Mcg INH] 1 each IH DAILY 11/29/16 Lisinopril [Zestril] 2.5 mg PO DAILY 11/29/16 Multivitamin [Poly-Vitamin] 1 each PO DAILY 11/29/16 Oxycodone HCl/Acetaminophen [Percocet 5-325 mg Tablet] 1 - 2 tab PO Q6H #10 tablet MDD 5 11/29/16 Silver Sulfadiazine [Silvadene] 1 applic TP BID 11/29/16 Family Disease History - Family Disease History Family Disease History: Heart Disease: Mother ( age 73), Sister, [place]: Mother Review of Systems - Review of Systems Constitutional: reports: Other Eyes: reports: No Symptoms HENT: reports: No Symptoms Neck: reports: No Symptoms Cardiovascular: reports: No Symptoms Respiratory: reports: No Symptoms Genitourinary: reports: No Symptoms Musculoskeletal: reports: Muscle Pain, Other Integumentary: reports: Change in Color, Erythema Neurological: reports: No Symptoms Endocrine: reports: No Symptoms Hematology/Lymphatic: reports: No Symptoms Psychiatric: reports: No Symptoms Physical Exam Vital Signs: Vital Signs Temperature 98 F 12/22/16 16:35 Pulse Rate 75 12/22/16 16:35 Respiratory Rate 18 12/22/16 16:35 Blood Pressure 126/69 12/22/16 16:35 O2 Sat by Pulse Oximetry (%) 96 12/22/16 16:45 Constitutional: Yes: Obese (severly) Eyes: Yes: Conjunctiva Clear Neck: Yes: Supple Cardiovascular: Yes: Regular Rate and Rhythm Respiratory: Yes: Poor Air Entry (bases) Gastrointestinal: Yes: Normal Bowel Sounds, Soft Musculoskeletal: Yes: Other Extremities: Yes: Other Edema: LLE: 1+, RLE: 1+ Integumentary: Yes: Erythema (bilateral legs,on the scrotum and lower abd wall) , Other (ulcer present on the scrotum) Wound/Incision: Yes: Other (dry with scab) Neurological: Yes: Alert, Oriented Psychiatric: Yes: Alert, Oriented Imaging - Results Chest X-ray: Report Reviewed, Image Reviewed Assessment/Plan Problem List - Problems (1) Cellulitis bilateral legs Code(s): L03.90 - CELLULITIS, UNSPECIFIED (2) COPD mixed type Code(s): J44.9 - CHRONIC OBSTRUCTIVE PULMONARY DISEASE, UNSPECIFIED (3) Diabetes Code(s): E11.9 - TYPE 2 DIABETES MELLITUS WITHOUT COMPLICATIONS (4) HLD (hyperlipidemia) Code(s): E78.5 - HYPERLIPIDEMIA, UNSPECIFIED (5) HTN (hypertension) Code(s): I10 - ESSENTIAL (PRIMARY) HYPERTENSION 6 scrotal cellulitis 7 lower abd wall cellulitits 8 leukocytosis plan will ask for ct scan of the pelvis and lower legs to r/o any infection and gas started on abx elevation of the leg close monitoring for sugars rest as per primary team
[2016-12-22] MEDS: CLINDAMYCIN 600MG PREMIX IVPB 50 ML IVPB SCH (20:30)
[2016-12-22] MEDS: HEPARIN NA (PORCINE) 5,000 UNITS/ML 1ML VIAL SQ SCH (21:49)
[2016-12-22] MEDS: ATORVASTATIN CA 10 MG TABLET (FP) PO SCH (21:49)
[2016-12-22] MEDS: oxyCODONE HCL 5 MG TABLET PO PRN (23:11)
[2016-12-22] MEDS: ACETAMINOPHEN 325 MG TABLET (FP) PO PRN (23:13)
[2016-12-23] MEDS: PIPERACILLIN/TAZOB 3.375 GM 50 ML IVPB SCH ×3 (01:51→18:12)
[2016-12-23] MEDS: CLINDAMYCIN 600MG PREMIX IVPB 50 ML IVPB SCH ×3 (02:30→18:11)
[2016-12-23] MEDS: oxyCODONE HCL 5 MG TABLET PO PRN ×3 (06:41→19:45)
[2016-12-23] MEDS: ACETAMINOPHEN 325 MG TABLET (FP) PO PRN ×3 (06:43→19:46)
[2016-12-23] MEDS ORDERED: metFORMIN HCL 500 MG TABLET (FP) PO SCH (07:00)
[2016-12-23 08:21] LABS: BASOPHIL 0.9 % (0-2.0); EOSINOPHIL 2.2 % (0-4.5); MCH 27.4 pg (25.7-33.7); MCHC 31.3 g/dl (32.0-35.9); MEAN CELL VOLUME 87.5 fl (80-96); MEAN PLT VOLUME 7.1 fl (7.5-11.1); NEUTROPHILS 82.9 % (42.8-82.8); PLATELET COUNT 200 K/MM3 (134-434); WHITE BLOOD COUNT 8.7 K/mm3 (4.0-10.0)
[2016-12-23 08:46] LABS: ALBUMIN 3.1 g/dl (3.4-5.0); BILIRUBIN,TOTAL 1.2 mg/dL (0.2-1.0); CALCIUM 8.5 mg/dL (8.5-10.1); COCKROFT - GAULT 183.1; CREATININE 1.3 mg/dL (0.7-1.3); TOT PROT 7.4 g/dl (6.4-8.2)
[2016-12-23] MEDS ORDERED: PT OWN MED DRAWER 7, Y5N ONE (09:47)
[2016-12-23] MEDS: ARIPiprazole 5 MG TABLET (FP) PO SCH (09:51)
[2016-12-23] MEDS: LISINOPRIL 5 MG TABLET (FP) PO SCH (09:51)
[2016-12-23] MEDS: ATENOLOL 25 MG TABLET (FP) PO SCH (09:53)
[2016-12-23] MEDS: FLUoxetine HCL 20 MG CAPSULE (FP) PO SCH (09:56)
[2016-12-23] MEDS: HEPARIN NA (PORCINE) 5,000 UNITS/ML 1ML VIAL SQ SCH ×2 (09:56→22:04)
[2016-12-23] MEDS ORDERED: PATIENT'S OWN MEDICATION (NON-FORMULARY) (Lisinopril [Zestril] 2.5 MG) PO SCH (10:00)
--- NOTE | 2016-12-23 14:40 | PN ---
Progress Note, Physician History of Present Illness: no complaint - Current Medication List Current Medications: Active Medications Acetaminophen (Tylenol -) 650 mg PO Q6H PRN PRN Reason: FEVER OR PAIN Last Admin: 12/23/16 13:40 Dose: 650 mg Aripiprazole (Abilify) 5 mg PO DAILY [facility] Last Admin: 12/23/16 09:51 Dose: 5 mg Atenolol (Tenormin -) 25 mg PO DAILY [facility] Last Admin: 12/23/16 09:53 Dose: 25 mg Atorvastatin Calcium (Lipitor -) 10 mg PO HS [facility] Last Admin: 12/22/16 21:49 Dose: 10 mg Bupropion HCl (Wellbutrin Xl -) 300 mg PO DAILY [facility] Last Admin: 12/23/16 09:53 Dose: 300 mg Fluoxetine HCl (Prozac -) 40 mg PO DAILY [facility] Last Admin: 12/23/16 09:56 Dose: 40 mg Heparin Sodium (Porcine) (Heparin -) 5,000 unit SQ BID [facility] Last Admin: 12/23/16 09:56 Dose: 5,000 unit Clindamycin Phosphate (Cleocin 600 Mg Premix Ivpb -) 50 mls @ 100 mls/hr IVPB Q8H-IV [facility] Last Admin: 12/23/16 09:54 Dose: 100 mls/hr Piperacillin Sod/Tazobactam Sod (Zosyn 3.375gm Ivpb (Pre-Docked)) 50 mls @ 100 mls/hr IVPB Q8H-IV [facility] PRN Reason: Protocol Last Admin: 12/23/16 09:54 Dose: 100 mls/hr Lisinopril (Prinivil) 2.5 mg PO DAILY [facility] Last Admin: 12/23/16 09:51 Dose: 2.5 mg Metformin HCl (Glucophage -) 500 mg PO BID@0700,1630 [facility] Oxycodone HCl (Roxicodone -) 10 mg PO Q6H PRN PRN Reason: PAIN Last Admin: 12/23/16 13:39 Dose: 10 mg - Objective Vital Signs: Vital Signs Temperature 97 F L 12/23/16 08:45 Pulse Rate 84 12/23/16 08:45 Respiratory Rate 18 12/23/16 08:45 Blood Pressure 126/74 12/23/16 08:45 O2 Sat by Pulse Oximetry (%) 94 L 12/23/16 09:00 Constitutional: Yes: No Distress HENT: Yes: Atraumatic Neck: Yes: Supple Cardiovascular: Yes: Regular Rate and Rhythm Respiratory: Yes: CTA Bilaterally Gastrointestinal: Yes: Normal Bowel Sounds Extremities: Yes: WNL Neurological: Yes: Alert, Oriented Labs: CBC, BMP 12/23/16 06:20 12/23/16 08:30 Problem List - Problems (1) Cellulitis Assessment/Plan: iv abx wound care id consult Code(s): L03.90 - CELLULITIS, UNSPECIFIED (2) COPD mixed type Assessment/Plan: duo nebs prn Code(s): J44.9 - CHRONIC OBSTRUCTIVE PULMONARY DISEASE, UNSPECIFIED (3) Diabetes Assessment/Plan: on bgms, insulin Code(s): E11.9 - TYPE 2 DIABETES MELLITUS WITHOUT COMPLICATIONS (4) HLD (hyperlipidemia) Assessment/Plan: on meds stable Code(s): E78.5 - HYPERLIPIDEMIA, UNSPECIFIED (5) HTN (hypertension) Assessment/Plan: on meds stable Code(s): I10 - ESSENTIAL (PRIMARY) HYPERTENSION Assessment/Plan Laboratory Tests 12/22/16 12/22/16 12/22/16 05:37 05:37 05:37 WBC 12.1 H RBC 4.32 Hgb 11.8 Hct 38.0 MCV 88.0 MCHC 30.9 L RDW 17.5 H Plt Count 213 MPV 7.4 L D Neutrophils % 85.8 H Lymphocytes % 5.8 L Monocytes % 6.7 Eosinophils % 1.1 Basophils % 0.6 D-Dimer 372 H Sodium 129 L Potassium 5.8 H Chloride 95 L Carbon Dioxide 22 D Anion Gap 12 BUN 34 H D Creatinine 1.8 H D Creat Clearance w eGFR 39.82 Random Glucose 111 H D Calcium 8.2 L Total Bilirubin 1.0 D AST 20 D ALT 16 Alkaline Phosphatase 176 H Creatine Kinase 51 Troponin I < 0.02 Total Protein 7.2 Albumin 3.1 L
--- NOTE | 2016-12-23 21:45 | PN ---
Progress Note, Physician History of Present Illness: says feeling better able to stand up legs feel a little better pain better - Current Medication List Current Medications: Active Medications Acetaminophen (Tylenol -) 650 mg PO Q6H PRN PRN Reason: FEVER OR PAIN Last Admin: 12/23/16 19:46 Dose: 650 mg Aripiprazole (Abilify) 5 mg PO DAILY [facility] Last Admin: 12/23/16 09:51 Dose: 5 mg Atenolol (Tenormin -) 25 mg PO DAILY [facility] Last Admin: 12/23/16 09:53 Dose: 25 mg Atorvastatin Calcium (Lipitor -) 10 mg PO HS [facility] Last Admin: 12/22/16 21:49 Dose: 10 mg Bupropion HCl (Wellbutrin Xl -) 300 mg PO DAILY [facility] Last Admin: 12/23/16 09:53 Dose: 300 mg Fluoxetine HCl (Prozac -) 40 mg PO DAILY [facility] Last Admin: 12/23/16 09:56 Dose: 40 mg Heparin Sodium (Porcine) (Heparin -) 5,000 unit SQ BID [facility] Last Admin: 12/23/16 09:56 Dose: 5,000 unit Clindamycin Phosphate (Cleocin 600 Mg Premix Ivpb -) 50 mls @ 100 mls/hr IVPB Q8H-IV [facility] Last Admin: 12/23/16 18:11 Dose: 100 mls/hr Piperacillin Sod/Tazobactam Sod (Zosyn 3.375gm Ivpb (Pre-Docked)) 50 mls @ 100 mls/hr IVPB Q8H-IV [facility] PRN Reason: Protocol Last Admin: 12/23/16 18:12 Dose: 100 mls/hr Lisinopril (Prinivil) 2.5 mg PO DAILY [facility] Last Admin: 12/23/16 09:51 Dose: 2.5 mg Metformin HCl (Glucophage -) 500 mg PO BID@0700,1630 [facility] Oxycodone HCl (Roxicodone -) 10 mg PO Q6H PRN PRN Reason: PAIN Last Admin: 12/23/16 19:45 Dose: 10 mg - Objective Vital Signs: Vital Signs Temperature 98.1 F 12/23/16 17:00 Pulse Rate 81 12/23/16 17:00 Respiratory Rate 20 12/23/16 17:00 Blood Pressure 117/70 12/23/16 17:00 O2 Sat by Pulse Oximetry (%) 94 L 12/23/16 09:00 Constitutional: Yes: No Distress, Calm, Obese Cardiovascular: Yes: Regular Rate and Rhythm Respiratory: Yes: Regular, Poor Air Entry Gastrointestinal: Yes: Normal Bowel Sounds, Soft Musculoskeletal: Yes: Other Extremities: Yes: Other Edema: LLE: 2+, RLE: 2+ Integumentary: Yes: Erythema (scrotal slightly better,legs look slightly better) Wound/Incision: Yes: Clean/Dry Neurological: Yes: Alert, Oriented Psychiatric: Yes: Alert, Oriented Labs: CBC, BMP 12/23/16 06:20 12/23/16 08:30 - ....Imaging Cat Scan: Report Reviewed, Image Reviewed Assessment/Plan Problem List - Problems (1) Cellulitis bilateral legs Code(s): L03.90 - CELLULITIS, UNSPECIFIED (2) COPD mixed type Code(s): J44.9 - CHRONIC OBSTRUCTIVE PULMONARY DISEASE, UNSPECIFIED (3) Diabetes Code(s): E11.9 - TYPE 2 DIABETES MELLITUS WITHOUT COMPLICATIONS (4) HLD (hyperlipidemia) Code(s): E78.5 - HYPERLIPIDEMIA, UNSPECIFIED (5) HTN (hypertension) Code(s): I10 - ESSENTIAL (PRIMARY) HYPERTENSION 6 scrotal cellulitis 7 lower abd wall cellulitits [address] scan pictures seen and result noted continue abx elevation of legs rest as per primary care
[2016-12-23] MEDS: ATORVASTATIN CA 10 MG TABLET (FP) PO SCH (22:05)
[2016-12-24] MEDS: CLINDAMYCIN 600MG PREMIX IVPB 50 ML IVPB SCH ×3 (01:33→17:35)
[2016-12-24] MEDS: PIPERACILLIN/TAZOB 3.375 GM 50 ML IVPB SCH ×3 (01:33→17:35)
[2016-12-24] MEDS: oxyCODONE HCL 5 MG TABLET PO PRN ×4 (01:34→22:14)
[2016-12-24] MEDS: ACETAMINOPHEN 325 MG TABLET (FP) PO PRN ×4 (01:34→22:19)
[2016-12-24] MEDS ORDERED: PT OWN MED DRAWER 7, Y5N ONE (09:55)
[2016-12-24] MEDS: ARIPiprazole 5 MG TABLET (FP) PO SCH (10:00)
[2016-12-24] MEDS: FLUoxetine HCL 20 MG CAPSULE (FP) PO SCH (10:01)
[2016-12-24] MEDS: LISINOPRIL 5 MG TABLET (FP) PO SCH (10:01)
[2016-12-24] MEDS: ATENOLOL 25 MG TABLET (FP) PO SCH (10:02)
[2016-12-24] MEDS: HEPARIN NA (PORCINE) 5,000 UNITS/ML 1ML VIAL SQ SCH ×2 (10:04→22:00)
--- NOTE | 2016-12-24 11:01 | PN ---
Progress Note, Physician History of Present Illness: says he is doing much better no new issues dressing removed wound looked at - Current Medication List Current Medications: Active Medications Acetaminophen (Tylenol -) 650 mg PO Q6H PRN PRN Reason: FEVER OR PAIN Last Admin: 12/24/16 08:33 Dose: 650 mg Aripiprazole (Abilify) 5 mg PO DAILY [facility] Last Admin: 12/24/16 10:00 Dose: 5 mg Atenolol (Tenormin -) 25 mg PO DAILY [facility] Last Admin: 12/24/16 10:02 Dose: 25 mg Atorvastatin Calcium (Lipitor -) 10 mg PO HS [facility] Last Admin: 12/23/16 22:05 Dose: 10 mg Bupropion HCl (Wellbutrin Xl -) 300 mg PO DAILY [facility] Last Admin: 12/24/16 10:02 Dose: 300 mg Fluoxetine HCl (Prozac -) 40 mg PO DAILY [facility] Last Admin: 12/24/16 10:01 Dose: 40 mg Heparin Sodium (Porcine) (Heparin -) 5,000 unit SQ BID [facility] Last Admin: 12/24/16 10:04 Dose: 5,000 unit Clindamycin Phosphate (Cleocin 600 Mg Premix Ivpb -) 50 mls @ 100 mls/hr IVPB Q8H-IV [facility] Last Admin: 12/24/16 10:02 Dose: 100 mls/hr Piperacillin Sod/Tazobactam Sod (Zosyn 3.375gm Ivpb (Pre-Docked)) 50 mls @ 100 mls/hr IVPB Q8H-IV [facility] PRN Reason: Protocol Last Admin: 12/24/16 10:03 Dose: 100 mls/hr Lisinopril (Prinivil) 2.5 mg PO DAILY [facility] Last Admin: 12/24/16 10:01 Dose: 2.5 mg Metformin HCl (Glucophage -) 500 mg PO BID@0700,1630 [facility] Oxycodone HCl (Roxicodone -) 10 mg PO Q6H PRN PRN Reason: PAIN Last Admin: 12/24/16 08:32 Dose: 10 mg - Objective Vital Signs: Vital Signs Temperature 97.4 F L 12/24/16 07:57 Pulse Rate 80 12/24/16 07:57 Respiratory Rate 20 12/24/16 07:57 Blood Pressure 124/74 12/24/16 07:57 O2 Sat by Pulse Oximetry (%) 94 L 12/23/16 21:00 Constitutional: Yes: No Distress, Calm, Obese (severly) Cardiovascular: Yes: Regular Rate and Rhythm Respiratory: Yes: Regular, CTA Bilaterally Gastrointestinal: Yes: Normal Bowel Sounds, Soft Musculoskeletal: Yes: Other Extremities: Yes: Other Integumentary: Yes: Other (abd wall cellulitits much better so is leg cellulitits and scrotal cellulitits) Neurological: Yes: Alert, Oriented Psychiatric: Yes: Alert Labs: CBC, BMP 12/23/16 06:20 12/23/16 08:30 Assessment/Plan Problem List - Problems (1) Cellulitis bilateral legs Code(s): L03.90 - CELLULITIS, UNSPECIFIED (2) COPD mixed type Code(s): J44.9 - CHRONIC OBSTRUCTIVE PULMONARY DISEASE, UNSPECIFIED (3) Diabetes Code(s): E11.9 - TYPE 2 DIABETES MELLITUS WITHOUT COMPLICATIONS (4) HLD (hyperlipidemia) Code(s): E78.5 - HYPERLIPIDEMIA, UNSPECIFIED (5) HTN (hypertension) Code(s): I10 - ESSENTIAL (PRIMARY) HYPERTENSION 6 scrotal cellulitis 7 lower abd wall cellulitits 8 leukocytosis plan continue abx elevation of legs hopefully will keep on improving rest as per primary
[2016-12-24] MEDS ORDERED: HYDROmorphone HCL CARPU-JECT 1 MG/1 ML DISP.SYRIN IVPB ONE (16:30)
[2016-12-24] MEDS ORDERED: ALBUTEROL SO4 2.5/IPRATROPIUM 0.5 INH SOL 3 ML VIAL.NEB. NEB PRN (18:43)
--- NOTE | 2016-12-24 18:43 | PN ---
Progress Note, Physician History of Present Illness: no complaint - Current Medication List Current Medications: Active Medications Acetaminophen (Tylenol -) 650 mg PO Q6H PRN PRN Reason: FEVER OR PAIN Last Admin: 12/24/16 14:24 Dose: 650 mg Aripiprazole (Abilify) 5 mg PO DAILY [facility] Last Admin: 12/24/16 10:00 Dose: 5 mg Atenolol (Tenormin -) 25 mg PO DAILY [facility] Last Admin: 12/24/16 10:02 Dose: 25 mg Atorvastatin Calcium (Lipitor -) 10 mg PO HS [facility] Last Admin: 12/23/16 22:05 Dose: 10 mg Bupropion HCl (Wellbutrin Xl -) 300 mg PO DAILY [facility] Last Admin: 12/24/16 10:02 Dose: 300 mg Fluoxetine HCl (Prozac -) 40 mg PO DAILY [facility] Last Admin: 12/24/16 10:01 Dose: 40 mg Heparin Sodium (Porcine) (Heparin -) 5,000 unit SQ BID [facility] Last Admin: 12/24/16 10:04 Dose: 5,000 unit Hydromorphone HCl (Dilaudid Injection -) 1 mg IVPB Q3H PRN PRN Reason: PAIN Clindamycin Phosphate (Cleocin 600 Mg Premix Ivpb -) 50 mls @ 100 mls/hr IVPB Q8H-IV [facility] Last Admin: 12/24/16 17:35 Dose: 100 mls/hr Piperacillin Sod/Tazobactam Sod (Zosyn 3.375gm Ivpb (Pre-Docked)) 50 mls @ 100 mls/hr IVPB Q8H-IV [facility] PRN Reason: Protocol Last Admin: 12/24/16 17:35 Dose: 100 mls/hr Lisinopril (Prinivil) 2.5 mg PO DAILY [facility] Last Admin: 12/24/16 10:01 Dose: 2.5 mg Metformin HCl (Glucophage -) 500 mg PO BID@0700,1630 [facility] Oxycodone HCl (Roxicodone -) 10 mg PO Q6H PRN PRN Reason: PAIN Last Admin: 12/24/16 14:23 Dose: 10 mg - Objective Vital Signs: Vital Signs Temperature 97.2 F L 12/24/16 16:30 Pulse Rate 72 12/24/16 16:30 Respiratory Rate 20 12/24/16 16:30 Blood Pressure 114/50 12/24/16 16:30 O2 Sat by Pulse Oximetry (%) 97 12/24/16 09:00 Constitutional: Yes: No Distress HENT: Yes: Atraumatic Neck: Yes: Supple Cardiovascular: Yes: Regular Rate and Rhythm Respiratory: Yes: CTA Bilaterally Gastrointestinal: Yes: Normal Bowel Sounds Extremities: Yes: Other (cellulitis b/l loi) Edema: LLE: 3+, RLE: 3+ Neurological: Yes: Alert, Oriented Labs: CBC, BMP 12/23/16 06:20 12/23/16 08:30 Problem List - Problems (1) Cellulitis Assessment/Plan: b/l loi iv abx wound care id consult Code(s): L03.90 - CELLULITIS, UNSPECIFIED (2) COPD mixed type Assessment/Plan: duo nebs prn Code(s): J44.9 - CHRONIC OBSTRUCTIVE PULMONARY DISEASE, UNSPECIFIED (3) Diabetes Assessment/Plan: on bgms, insulin Code(s): E11.9 - TYPE 2 DIABETES MELLITUS WITHOUT COMPLICATIONS (4) HLD (hyperlipidemia) Assessment/Plan: on meds stable Code(s): E78.5 - HYPERLIPIDEMIA, UNSPECIFIED (5) HTN (hypertension) Assessment/Plan: on meds stable Code(s): I10 - ESSENTIAL (PRIMARY) HYPERTENSION Assessment/Plan Laboratory Tests
[2016-12-24] MEDS: ATORVASTATIN CA 10 MG TABLET (FP) PO SCH (22:01)
[2016-12-25] MEDS: CLINDAMYCIN 600MG PREMIX IVPB 50 ML IVPB SCH ×3 (01:24→18:36)
[2016-12-25] MEDS: PIPERACILLIN/TAZOB 3.375 GM 50 ML IVPB SCH ×3 (01:48→18:24)
[2016-12-25] MEDS: oxyCODONE HCL 5 MG TABLET PO PRN ×3 (05:04→20:33)
[2016-12-25] MEDS: ACETAMINOPHEN 325 MG TABLET (FP) PO PRN ×2 (05:06→20:43)
[2016-12-25] MEDS: HYDROmorphone HCL CARPU-JECT 1 MG/1 ML DISP.SYRIN IVPB PRN ×2 (07:23→15:47)
[2016-12-25 08:50] LABS: BASOPHIL 0.8 % (0-2.0); EOSINOPHIL 2.6 % (0-4.5); MCH 27.5 pg (25.7-33.7); MEAN CELL VOLUME 88.6 fl (80-96); MEAN PLT VOLUME 7.1 fl (7.5-11.1); NEUTROPHILS 80.5 % (42.8-82.8); PLATELET COUNT 204 K/MM3 (134-434); RDW 17.2 % (11.9-15.9); WHITE BLOOD COUNT 8.6 K/mm3 (4.0-10.0)
[2016-12-25 09:07] LABS: ALBUMIN 3.2 g/dl (3.4-5.0); BILIRUBIN,TOTAL 1.2 mg/dL (0.2-1.0); CALCIUM 8.5 mg/dL (8.5-10.1); COCKROFT - GAULT 183.1; CREATININE 1.3 mg/dL (0.7-1.3); TOT PROT 7.6 g/dl (6.4-8.2)
[2016-12-25] MEDS: ARIPiprazole 5 MG TABLET (FP) PO SCH (10:20)
[2016-12-25] MEDS: FLUoxetine HCL 20 MG CAPSULE (FP) PO SCH (10:20)
[2016-12-25] MEDS: LISINOPRIL 5 MG TABLET (FP) PO SCH (10:22)
[2016-12-25] MEDS: HEPARIN NA (PORCINE) 5,000 UNITS/ML 1ML VIAL SQ SCH ×2 (10:22→21:02)
[2016-12-25] MEDS: ATENOLOL 25 MG TABLET (FP) PO SCH (10:22)
--- NOTE | 2016-12-25 12:56 | PN ---
Progress Note, Physician History of Present Illness: doing better improving no new issues - Current Medication List Current Medications: Active Medications Acetaminophen (Tylenol -) 650 mg PO Q6H PRN PRN Reason: FEVER OR PAIN Last Admin: 12/25/16 05:06 Dose: 650 mg Albuterol/Ipratropium (Duoneb -) 1 amp NEB Q4H PRN PRN Reason: SHORTNESS OF BREATH Aripiprazole (Abilify) 5 mg PO DAILY [facility] Last Admin: 12/25/16 10:20 Dose: 5 mg Atenolol (Tenormin -) 25 mg PO DAILY [facility] Last Admin: 12/25/16 10:22 Dose: 25 mg Atorvastatin Calcium (Lipitor -) 10 mg PO HS [facility] Last Admin: 12/24/16 22:01 Dose: 10 mg Bupropion HCl (Wellbutrin Xl -) 300 mg PO DAILY [facility] Last Admin: 12/25/16 10:20 Dose: 300 mg Fluoxetine HCl (Prozac -) 40 mg PO DAILY [facility] Last Admin: 12/25/16 10:20 Dose: 40 mg Heparin Sodium (Porcine) (Heparin -) 5,000 unit SQ BID [facility] Last Admin: 12/25/16 10:22 Dose: 5,000 unit Hydromorphone HCl (Dilaudid Injection -) 1 mg IVPB Q3H PRN PRN Reason: PAIN Last Admin: 12/25/16 07:23 Dose: 1 mg Clindamycin Phosphate (Cleocin 600 Mg Premix Ivpb -) 50 mls @ 100 mls/hr IVPB Q8H-IV [facility] Last Admin: 12/25/16 10:21 Dose: 100 mls/hr Piperacillin Sod/Tazobactam Sod (Zosyn 3.375gm Ivpb (Pre-Docked)) 50 mls @ 100 mls/hr IVPB Q8H-IV [facility] PRN Reason: Protocol Last Admin: 12/25/16 10:20 Dose: 100 mls/hr Lisinopril (Prinivil) 2.5 mg PO DAILY [facility] Last Admin: 12/25/16 10:22 Dose: 2.5 mg Metformin HCl (Glucophage -) 500 mg PO BID@0700,1630 [facility] Oxycodone HCl (Roxicodone -) 10 mg PO Q6H PRN PRN Reason: PAIN Last Admin: 12/25/16 05:04 Dose: 10 mg - Objective Vital Signs: Vital Signs Temperature 98.2 F 12/25/16 10:00 Pulse Rate 72 12/25/16 10:00 Respiratory Rate 18 12/25/16 10:00 Blood Pressure 134/54 12/25/16 10:00 O2 Sat by Pulse Oximetry (%) 97 12/24/16 21:00 Constitutional: Yes: No Distress, Calm, Obese Cardiovascular: Yes: Regular Rate and Rhythm Respiratory: Yes: Regular, CTA Bilaterally Gastrointestinal: Yes: Normal Bowel Sounds, Soft Extremities: Yes: Erythema (improving) Integumentary: Yes: Erythema (improving cellulitits of abd and scrotum) Neurological: Yes: Alert, Oriented Psychiatric: Yes: Alert, Oriented Labs: CBC, BMP 12/25/16 06:30 12/25/16 06:30 Assessment/Plan Problem List - Problems (1) Cellulitis bilateral legs Code(s): L03.90 - CELLULITIS, UNSPECIFIED (2) COPD mixed type Code(s): J44.9 - CHRONIC OBSTRUCTIVE PULMONARY DISEASE, UNSPECIFIED (3) Diabetes Code(s): E11.9 - TYPE 2 DIABETES MELLITUS WITHOUT COMPLICATIONS (4) HLD (hyperlipidemia) Code(s): E78.5 - HYPERLIPIDEMIA, UNSPECIFIED (5) HTN (hypertension) Code(s): I10 - ESSENTIAL (PRIMARY) HYPERTENSION 6 scrotal cellulitis 7 lower abd wall cellulitits 8 leukocytosis plan continue abx elevation of legs hopefully will keep on improving rest as per primary will await for the abd cellulitits to improve before i switch to oral
--- NOTE | 2016-12-25 16:58 | PN ---
Progress Note, Physician History of Present Illness: no complaint - Current Medication List Current Medications: Active Medications Acetaminophen (Tylenol -) 650 mg PO Q6H PRN PRN Reason: FEVER OR PAIN Last Admin: 12/25/16 05:06 Dose: 650 mg Albuterol/Ipratropium (Duoneb -) 1 amp NEB Q4H PRN PRN Reason: SHORTNESS OF BREATH Aripiprazole (Abilify) 5 mg PO DAILY [facility] Last Admin: 12/25/16 10:20 Dose: 5 mg Atenolol (Tenormin -) 25 mg PO DAILY [facility] Last Admin: 12/25/16 10:22 Dose: 25 mg Atorvastatin Calcium (Lipitor -) 10 mg PO HS [facility] Last Admin: 12/24/16 22:01 Dose: 10 mg Bupropion HCl (Wellbutrin Xl -) 300 mg PO DAILY [facility] Last Admin: 12/25/16 10:20 Dose: 300 mg Fluoxetine HCl (Prozac -) 40 mg PO DAILY [facility] Last Admin: 12/25/16 10:20 Dose: 40 mg Heparin Sodium (Porcine) (Heparin -) 5,000 unit SQ BID [facility] Last Admin: 12/25/16 10:22 Dose: 5,000 unit Hydromorphone HCl (Dilaudid Injection -) 1 mg IVPB Q3H PRN PRN Reason: PAIN Last Admin: 12/25/16 15:47 Dose: 1 mg Clindamycin Phosphate (Cleocin 600 Mg Premix Ivpb -) 50 mls @ 100 mls/hr IVPB Q8H-IV [facility] Last Admin: 12/25/16 10:21 Dose: 100 mls/hr Piperacillin Sod/Tazobactam Sod (Zosyn 3.375gm Ivpb (Pre-Docked)) 50 mls @ 100 mls/hr IVPB Q8H-IV [facility] PRN Reason: Protocol Last Admin: 12/25/16 10:20 Dose: 100 mls/hr Lisinopril (Prinivil) 2.5 mg PO DAILY [facility] Last Admin: 12/25/16 10:22 Dose: 2.5 mg Metformin HCl (Glucophage -) 500 mg PO BID@0700,1630 [facility] Oxycodone HCl (Roxicodone -) 10 mg PO Q6H PRN PRN Reason: PAIN Last Admin: 12/25/16 14:21 Dose: 10 mg - Objective Vital Signs: Vital Signs Temperature 97.9 F 12/25/16 15:08 Pulse Rate 74 12/25/16 15:08 Respiratory Rate 20 12/25/16 15:08 Blood Pressure 134/54 12/25/16 10:00 O2 Sat by Pulse Oximetry (%) 97 12/25/16 09:00 Constitutional: Yes: No Distress HENT: Yes: Atraumatic Neck: Yes: Supple Cardiovascular: Yes: Regular Rate and Rhythm Respiratory: Yes: CTA Bilaterally Gastrointestinal: Yes: Normal Bowel Sounds, Other (ABD WALL RED /WARM) Extremities: Yes: Other (CELLULITIS B/L TRAE) Edema: LLE: 2+, RLE: 2+ Neurological: Yes: Alert, Oriented Labs: CBC, BMP 12/25/16 06:30 12/25/16 06:30 Problem List - Problems (1) Cellulitis Assessment/Plan: b/l trae, abdominal wall, scrotal iv abx wound care id consult Code(s): L03.90 - CELLULITIS, UNSPECIFIED (2) COPD mixed type Assessment/Plan: duo nebs prn Code(s): J44.9 - CHRONIC OBSTRUCTIVE PULMONARY DISEASE, UNSPECIFIED (3) Diabetes Assessment/Plan: on bgms, insulin Code(s): E11.9 - TYPE 2 DIABETES MELLITUS WITHOUT COMPLICATIONS (4) HLD (hyperlipidemia) Assessment/Plan: on meds stable Code(s): E78.5 - HYPERLIPIDEMIA, UNSPECIFIED (5) HTN (hypertension) Assessment/Plan: on meds stable Code(s): I10 - ESSENTIAL (PRIMARY) HYPERTENSION Assessment/Plan Laboratory Tests
[2016-12-25] MEDS: metFORMIN HCL 500 MG TABLET (FP) PO SCH (18:24)
[2016-12-25] MEDS ORDERED: oxyCODONE HCL 5 MG TABLET PO ONE (18:45)
[2016-12-25] MEDS: ATORVASTATIN CA 10 MG TABLET (FP) PO SCH (21:02)
[2016-12-26] MEDS: CLINDAMYCIN 600MG PREMIX IVPB 50 ML IVPB SCH (01:23)
[2016-12-26] MEDS: HYDROmorphone HCL CARPU-JECT 1 MG/1 ML DISP.SYRIN IVPB PRN ×3 (01:28→18:25)
[2016-12-26] MEDS: PIPERACILLIN/TAZOB 3.375 GM 50 ML IVPB SCH ×3 (02:24→18:21)
[2016-12-26] MEDS: oxyCODONE HCL 5 MG TABLET PO PRN ×3 (05:36→22:55)
[2016-12-26] MEDS: ACETAMINOPHEN 325 MG TABLET (FP) PO PRN ×2 (05:38→23:00)
[2016-12-26] MEDS: metFORMIN HCL 500 MG TABLET (FP) PO SCH ×2 (06:41→18:21)
--- NOTE | 2016-12-26 09:33 | PN ---
Progress Note, Physician History of Present Illness: patient doing well no complaints improving erythema improving - Current Medication List Current Medications: Active Medications Acetaminophen (Tylenol -) 650 mg PO Q6H PRN PRN Reason: FEVER OR PAIN Last Admin: 12/26/16 05:38 Dose: 650 mg Albuterol/Ipratropium (Duoneb -) 1 amp NEB Q4H PRN PRN Reason: SHORTNESS OF BREATH Aripiprazole (Abilify) 5 mg PO DAILY [facility] Last Admin: 12/25/16 10:20 Dose: 5 mg Atenolol (Tenormin -) 25 mg PO DAILY [facility] Last Admin: 12/25/16 10:22 Dose: 25 mg Atorvastatin Calcium (Lipitor -) 10 mg PO HS [facility] Last Admin: 12/25/16 21:02 Dose: 10 mg Bupropion HCl (Wellbutrin Xl -) 300 mg PO DAILY [facility] Last Admin: 12/25/16 10:20 Dose: 300 mg Fluoxetine HCl (Prozac -) 40 mg PO DAILY [facility] Last Admin: 12/25/16 10:20 Dose: 40 mg Heparin Sodium (Porcine) (Heparin -) 5,000 unit SQ BID [facility] Last Admin: 12/25/16 21:02 Dose: 5,000 unit Hydromorphone HCl (Dilaudid Injection -) 1 mg IVPB Q3H PRN PRN Reason: PAIN Last Admin: 12/26/16 01:28 Dose: 1 mg Piperacillin Sod/Tazobactam Sod (Zosyn 3.375gm Ivpb (Pre-Docked)) 50 mls @ 100 mls/hr IVPB Q8H-IV [facility] PRN Reason: Protocol Last Admin: 12/26/16 02:24 Dose: 100 mls/hr Lisinopril (Prinivil) 2.5 mg PO DAILY [facility] Last Admin: 12/25/16 10:22 Dose: 2.5 mg Metformin HCl (Glucophage -) 500 mg PO BID@0700,1630 [facility] Last Admin: 12/26/16 06:41 Dose: 500 mg Oxycodone HCl (Roxicodone -) 10 mg PO Q6H PRN Last Admin: 12/26/16 05:36 Dose: 10 mg - Objective Vital Signs: Vital Signs Temperature 98.4 F 12/26/16 06:40 Pulse Rate 69 12/26/16 06:43 Respiratory Rate 20 12/26/16 06:43 Blood Pressure 98/52 12/26/16 06:43 O2 Sat by Pulse Oximetry (%) 97 12/25/16 21:00 Constitutional: Yes: No Distress, Calm, Obese (severe) Cardiovascular: Yes: Regular Rate and Rhythm Respiratory: Yes: Regular, CTA Bilaterally Gastrointestinal: Yes: Normal Bowel Sounds, Soft Musculoskeletal: Yes: Other Extremities: Yes: Erythema, Other Integumentary: Yes: Other (scrotal celluitits and cellulitits of the lower abd wall improving) Neurological: Yes: Alert, Oriented Psychiatric: Yes: Alert Labs: CBC, BMP 12/25/16 06:30 12/25/16 06:30 Assessment/Plan Problem List - Problems (1) Cellulitis bilateral legs Code(s): L03.90 - CELLULITIS, UNSPECIFIED (2) COPD mixed type Code(s): J44.9 - CHRONIC OBSTRUCTIVE PULMONARY DISEASE, UNSPECIFIED (3) Diabetes Code(s): E11.9 - TYPE 2 DIABETES MELLITUS WITHOUT COMPLICATIONS (4) HLD (hyperlipidemia) Code(s): E78.5 - HYPERLIPIDEMIA, UNSPECIFIED (5) HTN (hypertension) Code(s): I10 - ESSENTIAL (PRIMARY) HYPERTENSION 6 scrotal cellulitis 7 lower abd wall cellulitits 8 leukocytosis plan continue abx elevation of legs hopefully will keep on improving rest as per primary will switch clinda to oral abx
[2016-12-26] MEDS: FLUoxetine HCL 20 MG CAPSULE (FP) PO SCH (10:57)
[2016-12-26] MEDS: ATENOLOL 25 MG TABLET (FP) PO SCH (10:57)
[2016-12-26] MEDS: LISINOPRIL 5 MG TABLET (FP) PO SCH (10:57)
[2016-12-26] MEDS: ARIPiprazole 5 MG TABLET (FP) PO SCH (10:57)
[2016-12-26] MEDS: HEPARIN NA (PORCINE) 5,000 UNITS/ML 1ML VIAL SQ SCH ×2 (10:58→21:07)
[2016-12-26] MEDS: CLINDAMYCIN HCL 150 MG CAPSULE (FP) PO SCH ×3 (11:47→23:30)
--- NOTE | 2016-12-26 16:38 | PN ---
Progress Note, Physician History of Present Illness: PAIN IN LEGS MORE ON RIGHT LEG - Current Medication List Current Medications: Active Medications Acetaminophen (Tylenol -) 650 mg PO Q6H PRN PRN Reason: FEVER OR PAIN Last Admin: 12/26/16 05:38 Dose: 650 mg Albuterol/Ipratropium (Duoneb -) 1 amp NEB Q4H PRN PRN Reason: SHORTNESS OF BREATH Aripiprazole (Abilify) 5 mg PO DAILY [facility] Last Admin: 12/26/16 10:57 Dose: 5 mg Atenolol (Tenormin -) 25 mg PO DAILY [facility] Last Admin: 12/26/16 10:57 Dose: 25 mg Atorvastatin Calcium (Lipitor -) 10 mg PO HS [facility] Last Admin: 12/25/16 21:02 Dose: 10 mg Bupropion HCl (Wellbutrin Xl -) 300 mg PO DAILY [facility] Last Admin: 12/26/16 10:57 Dose: 300 mg Clindamycin HCl (Cleocin -) 300 mg PO Q6HPO [facility] Last Admin: 12/26/16 11:47 Dose: 300 mg Fluoxetine HCl (Prozac -) 40 mg PO DAILY [facility] Last Admin: 12/26/16 10:57 Dose: 40 mg Heparin Sodium (Porcine) (Heparin -) 5,000 unit SQ BID [facility] Last Admin: 12/26/16 10:58 Dose: 5,000 unit Hydromorphone HCl (Dilaudid Injection -) 1 mg IVPB Q3H PRN PRN Reason: PAIN Last Admin: 12/26/16 10:47 Dose: 1 mg Piperacillin Sod/Tazobactam Sod (Zosyn 3.375gm Ivpb (Pre-Docked)) 50 mls @ 100 mls/hr IVPB Q8H-IV [facility] PRN Reason: Protocol Last Admin: 12/26/16 10:56 Dose: 100 mls/hr Lisinopril (Prinivil) 2.5 mg PO DAILY [facility] Last Admin: 12/26/16 10:57 Dose: 2.5 mg Metformin HCl (Glucophage -) 500 mg PO BID@0700,1630 [facility] Last Admin: 12/26/16 06:41 Dose: 500 mg Oxycodone HCl (Roxicodone -) 10 mg PO Q6H PRN Last Admin: 05/19/17 15:48 Dose: 10 mg - Objective Vital Signs: Vital Signs Temperature 98.2 F 12/26/16 10:00 Pulse Rate 81 12/26/16 10:00 Respiratory Rate 18 12/26/16 10:00 Blood Pressure 135/56 12/26/16 10:00 O2 Sat by Pulse Oximetry (%) 97 12/25/16 21:00 Constitutional: Yes: No Distress HENT: Yes: Atraumatic Neck: Yes: Supple Cardiovascular: Yes: Regular Rate and Rhythm Respiratory: Yes: CTA Bilaterally Gastrointestinal: Yes: Normal Bowel Sounds Extremities: Yes: Other (cellulitis b/l loi) Edema: LLE: 3+, RLE: 3+ Neurological: Yes: Alert, Oriented Labs: CBC, BMP 12/25/16 06:30 12/25/16 06:30 Problem List - Problems (1) Cellulitis Assessment/Plan: b/l loi iv abx wound care id consult Code(s): L03.90 - CELLULITIS, UNSPECIFIED (2) COPD mixed type Assessment/Plan: duo nebs prn Code(s): J44.9 - CHRONIC OBSTRUCTIVE PULMONARY DISEASE, UNSPECIFIED (3) Diabetes Assessment/Plan: on bgms, insulin Code(s): E11.9 - TYPE 2 DIABETES MELLITUS WITHOUT COMPLICATIONS (4) HLD (hyperlipidemia) Assessment/Plan: on meds stable Code(s): E78.5 - HYPERLIPIDEMIA, UNSPECIFIED (5) HTN (hypertension) Assessment/Plan: on meds stable Code(s): I10 - ESSENTIAL (PRIMARY) HYPERTENSION Assessment/Plan PAIN LOWER EXTREMITY Laboratory Tests will start him on neurontin for loi pain ..i think its neuropathic pain already on iv dilaudid and po hydrocodone
[2016-12-26] MEDS: GABAPENTIN 100 MG CAPSULE (FP) PO SCH (21:06)
[2016-12-26] MEDS: ATORVASTATIN CA 10 MG TABLET (FP) PO SCH (21:06)
[2016-12-27] MEDS: PIPERACILLIN/TAZOB 3.375 GM 50 ML IVPB SCH ×3 (01:50→18:11)
[2016-12-27] MEDS: oxyCODONE HCL 5 MG TABLET PO PRN ×3 (05:07→23:23)
[2016-12-27] MEDS: ACETAMINOPHEN 325 MG TABLET (FP) PO PRN ×3 (05:09→23:24)
[2016-12-27] MEDS: GABAPENTIN 100 MG CAPSULE (FP) PO SCH ×3 (05:41→21:46)
[2016-12-27] MEDS: CLINDAMYCIN HCL 150 MG CAPSULE (FP) PO SCH ×4 (05:41→23:26)
[2016-12-27] MEDS: metFORMIN HCL 500 MG TABLET (FP) PO SCH ×2 (06:16→17:56)
[2016-12-27] MEDS: LISINOPRIL 5 MG TABLET (FP) PO SCH (09:04)
[2016-12-27] MEDS: ATENOLOL 25 MG TABLET (FP) PO SCH (09:04)
[2016-12-27] MEDS: HEPARIN NA (PORCINE) 5,000 UNITS/ML 1ML VIAL SQ SCH ×2 (09:05→21:45)
[2016-12-27] MEDS ORDERED: PT OWN MED DRAWER 7, Y5N ONE ×2 (09:15→17:52)
[2016-12-27] MEDS: ARIPiprazole 5 MG TABLET (FP) PO SCH (09:16)
[2016-12-27] MEDS: FLUoxetine HCL 20 MG CAPSULE (FP) PO SCH (09:16)
[2016-12-27] MEDS: HYDROmorphone HCL CARPU-JECT 1 MG/1 ML DISP.SYRIN IVPB PRN (10:06)
--- NOTE | 2016-12-27 12:06 | PN ---
Progress Note, Physician History of Present Illness: FELLING BETTER LESS PAIN - Current Medication List Current Medications: Active Medications Acetaminophen (Tylenol -) 650 mg PO Q6H PRN PRN Reason: FEVER OR PAIN Last Admin: 12/27/16 05:09 Dose: 650 mg Albuterol/Ipratropium (Duoneb -) 1 amp NEB Q4H PRN PRN Reason: SHORTNESS OF BREATH Aripiprazole (Abilify) 5 mg PO DAILY [facility] Last Admin: 12/27/16 09:16 Dose: 5 mg Atenolol (Tenormin -) 25 mg PO DAILY [facility] Last Admin: 12/27/16 09:04 Dose: 25 mg Atorvastatin Calcium (Lipitor -) 10 mg PO HS [facility] Last Admin: 12/26/16 21:06 Dose: 10 mg Bupropion HCl (Wellbutrin Xl -) 300 mg PO DAILY [facility] Last Admin: 12/27/16 09:16 Dose: 300 mg Clindamycin HCl (Cleocin -) 300 mg PO Q6HPO [facility] Last Admin: 12/27/16 05:41 Dose: 300 mg Fluoxetine HCl (Prozac -) 40 mg PO DAILY [facility] Last Admin: 12/27/16 09:16 Dose: 40 mg Gabapentin (Neurontin -) 200 mg PO TID [facility] Last Admin: 12/27/16 05:41 Dose: 200 mg Heparin Sodium (Porcine) (Heparin -) 5,000 unit SQ BID [facility] Last Admin: 12/27/16 09:05 Dose: 5,000 unit Hydromorphone HCl (Dilaudid Injection -) 1 mg IVPB Q3H PRN PRN Reason: PAIN Last Admin: 12/27/16 10:06 Dose: 1 mg Piperacillin Sod/Tazobactam Sod (Zosyn 3.375gm Ivpb (Pre-Docked)) 50 mls @ 100 mls/hr IVPB Q8H-IV [facility] PRN Reason: Protocol Last Admin: 12/27/16 09:05 Dose: 100 mls/hr Lisinopril (Prinivil) 2.5 mg PO DAILY [facility] Last Admin: 12/27/16 09:04 Dose: 2.5 mg Metformin HCl (Glucophage -) 500 mg PO BID@0700,1630 [facility] Last Admin: 12/27/16 06:16 Dose: 500 mg Oxycodone HCl (Roxicodone -) 10 mg PO Q6H PRN Last Admin: 12/27/16 05:07 Dose: 10 mg - Objective Vital Signs: Vital Signs Temperature 97.2 F L 12/27/16 06:00 Pulse Rate 69 12/27/16 06:00 Respiratory Rate 20 12/27/16 06:00 Blood Pressure 105/57 12/27/16 06:00 O2 Sat by Pulse Oximetry (%) 97 12/26/16 21:00 Constitutional: Yes: No Distress HENT: Yes: Atraumatic Neck: Yes: Supple Cardiovascular: Yes: Regular Rate and Rhythm Respiratory: Yes: CTA Bilaterally Gastrointestinal: Yes: Normal Bowel Sounds Extremities: Yes: Other (CELLULITIS B/L TRAE) Neurological: Yes: Alert, Oriented Labs: CBC, BMP 12/25/16 06:30 12/25/16 06:30 Problem List - Problems (1) Cellulitis Assessment/Plan: iv abx wound care id consult Code(s): L03.90 - CELLULITIS, UNSPECIFIED (2) COPD mixed type Assessment/Plan: duo nebs prn Code(s): J44.9 - CHRONIC OBSTRUCTIVE PULMONARY DISEASE, UNSPECIFIED (3) Diabetes Assessment/Plan: on bgms, insulin Code(s): E11.9 - TYPE 2 DIABETES MELLITUS WITHOUT COMPLICATIONS (4) HLD (hyperlipidemia) Assessment/Plan: on meds stable Code(s): E78.5 - HYPERLIPIDEMIA, UNSPECIFIED (5) HTN (hypertension) Assessment/Plan: on meds stable Code(s): I10 - ESSENTIAL (PRIMARY) HYPERTENSION
--- NOTE | 2016-12-27 17:12 | PN ---
Progress Note, Physician History of Present Illness: patient doing well no complaints improving - Current Medication List Current Medications: Active Medications Acetaminophen (Tylenol -) 650 mg PO Q6H PRN PRN Reason: FEVER OR PAIN Last Admin: 12/27/16 05:09 Dose: 650 mg Albuterol/Ipratropium (Duoneb -) 1 amp NEB Q4H PRN PRN Reason: SHORTNESS OF BREATH Aripiprazole (Abilify) 5 mg PO DAILY [facility] Last Admin: 12/27/16 09:16 Dose: 5 mg Atenolol (Tenormin -) 25 mg PO DAILY [facility] Last Admin: 12/27/16 09:04 Dose: 25 mg Atorvastatin Calcium (Lipitor -) 10 mg PO HS [facility] Last Admin: 12/26/16 21:06 Dose: 10 mg Bupropion HCl (Wellbutrin Xl -) 300 mg PO DAILY [facility] Last Admin: 12/27/16 09:16 Dose: 300 mg Clindamycin HCl (Cleocin -) 300 mg PO Q6HPO [facility] Last Admin: 12/27/16 13:52 Dose: 300 mg Fluoxetine HCl (Prozac -) 40 mg PO DAILY [facility] Last Admin: 12/27/16 09:16 Dose: 40 mg Gabapentin (Neurontin -) 200 mg PO TID [facility] Last Admin: 12/27/16 13:52 Dose: 200 mg Heparin Sodium (Porcine) (Heparin -) 5,000 unit SQ BID [facility] Last Admin: 12/27/16 09:05 Dose: 5,000 unit Hydromorphone HCl (Dilaudid Injection -) 1 mg IVPB Q3H PRN PRN Reason: PAIN Last Admin: 12/27/16 10:06 Dose: 1 mg Piperacillin Sod/Tazobactam Sod (Zosyn 3.375gm Ivpb (Pre-Docked)) 50 mls @ 100 mls/hr IVPB Q8H-IV [facility] PRN Reason: Protocol Last Admin: 12/27/16 09:05 Dose: 100 mls/hr Lisinopril (Prinivil) 2.5 mg PO DAILY [facility] Last Admin: 12/27/16 09:04 Dose: 2.5 mg Metformin HCl (Glucophage -) 500 mg PO BID@0700,1630 [facility] Last Admin: 12/27/16 06:16 Dose: 500 mg Oxycodone HCl (Roxicodone -) 10 mg PO Q6H PRN Last Admin: 12/27/16 05:07 Dose: 10 mg - Objective Vital Signs: Vital Signs Temperature 97.8 F 12/27/16 15:57 Pulse Rate 74 12/27/16 15:57 Respiratory Rate 20 12/27/16 15:57 Blood Pressure 116/72 12/27/16 15:57 O2 Sat by Pulse Oximetry (%) 97 12/27/16 09:00 Constitutional: Yes: No Distress, Calm, Obese Cardiovascular: Yes: Regular Rate and Rhythm Respiratory: Yes: Regular, CTA Bilaterally Gastrointestinal: Yes: Normal Bowel Sounds, Soft Musculoskeletal: Yes: Other Extremities: Yes: Other Neurological: Yes: Alert, Oriented Psychiatric: Yes: Alert, Oriented Labs: CBC, BMP 12/25/16 06:30 12/25/16 06:30 Assessment/Plan Problem List - Problems (1) Cellulitis bilateral legs Code(s): L03.90 - CELLULITIS, UNSPECIFIED (2) COPD mixed type Code(s): J44.9 - CHRONIC OBSTRUCTIVE PULMONARY DISEASE, UNSPECIFIED (3) Diabetes Code(s): E11.9 - TYPE 2 DIABETES MELLITUS WITHOUT COMPLICATIONS (4) HLD (hyperlipidemia) Code(s): E78.5 - HYPERLIPIDEMIA, UNSPECIFIED (5) HTN (hypertension) Code(s): I10 - ESSENTIAL (PRIMARY) HYPERTENSION 6 scrotal cellulitis 7 lower abd wall cellulitits 8 leukocytosis plan continue abx elevation of legs continues to improve continue monitoring
[2016-12-27] MEDS: ATORVASTATIN CA 10 MG TABLET (FP) PO SCH (21:46)
[2016-12-28] MEDS: PIPERACILLIN/TAZOB 3.375 GM 50 ML IVPB SCH ×3 (01:15→17:48)
[2016-12-28] MEDS: oxyCODONE HCL 5 MG TABLET PO PRN ×3 (06:41→22:02)
[2016-12-28] MEDS: metFORMIN HCL 500 MG TABLET (FP) PO SCH ×2 (06:42→17:13)
[2016-12-28] MEDS: GABAPENTIN 100 MG CAPSULE (FP) PO SCH ×3 (06:42→22:02)
[2016-12-28] MEDS: CLINDAMYCIN HCL 150 MG CAPSULE (FP) PO SCH ×3 (06:42→17:13)
[2016-12-28] MEDS ORDERED: PT OWN MED DRAWER 7, Y5N ONE (09:31)
[2016-12-28] MEDS: LISINOPRIL 5 MG TABLET (FP) PO SCH (09:34)
[2016-12-28] MEDS: FLUoxetine HCL 20 MG CAPSULE (FP) PO SCH (09:35)
[2016-12-28] MEDS: ARIPiprazole 5 MG TABLET (FP) PO SCH (09:36)
[2016-12-28] MEDS: HEPARIN NA (PORCINE) 5,000 UNITS/ML 1ML VIAL SQ SCH ×2 (09:36→22:02)
[2016-12-28] MEDS: ATENOLOL 25 MG TABLET (FP) PO SCH (09:37)
[2016-12-28] MEDS: ACETAMINOPHEN 325 MG TABLET (FP) PO PRN (15:49)
--- NOTE | 2016-12-28 22:01 | PN ---
Progress Note, Physician - Current Medication List Current Medications: Active Medications Acetaminophen (Tylenol -) 650 mg PO Q6H PRN PRN Reason: FEVER OR PAIN Last Admin: 12/28/16 15:49 Dose: 650 mg Albuterol/Ipratropium (Duoneb -) 1 amp NEB Q4H PRN PRN Reason: SHORTNESS OF BREATH Aripiprazole (Abilify) 5 mg PO DAILY [facility] Last Admin: 12/28/16 09:36 Dose: 5 mg Atenolol (Tenormin -) 25 mg PO DAILY [facility] Last Admin: 12/28/16 09:37 Dose: 25 mg Atorvastatin Calcium (Lipitor -) 10 mg PO HS [facility] Last Admin: 12/27/16 21:46 Dose: 10 mg Bupropion HCl (Wellbutrin Xl -) 300 mg PO DAILY [facility] Last Admin: 12/28/16 09:36 Dose: 300 mg Clindamycin HCl (Cleocin -) 300 mg PO Q6HPO [facility] Last Admin: 12/28/16 17:13 Dose: 300 mg Fluoxetine HCl (Prozac -) 40 mg PO DAILY [facility] Last Admin: 12/28/16 09:35 Dose: 40 mg Gabapentin (Neurontin -) 200 mg PO TID [facility] Last Admin: 12/28/16 13:37 Dose: 200 mg Heparin Sodium (Porcine) (Heparin -) 5,000 unit SQ BID [facility] Last Admin: 12/28/16 09:36 Dose: 5,000 unit Piperacillin Sod/Tazobactam Sod (Zosyn 3.375gm Ivpb (Pre-Docked)) 50 mls @ 100 mls/hr IVPB Q8H-IV [facility] PRN Reason: Protocol Last Admin: 12/28/16 17:48 Dose: 100 mls/hr Lisinopril (Prinivil) 2.5 mg PO DAILY [facility] Last Admin: 12/28/16 09:34 Dose: 2.5 mg Metformin HCl (Glucophage -) 500 mg PO BID@0700,1630 [facility] Last Admin: 12/28/16 17:13 Dose: 500 mg Oxycodone HCl (Roxicodone -) 10 mg PO Q6H PRN Last Admin: 12/28/16 15:46 Dose: 10 mg - Objective Vital Signs: Vital Signs Temperature 97.1 F L 12/28/16 17:45 Pulse Rate 77 12/28/16 17:45 Respiratory Rate 20 12/28/16 17:45 Blood Pressure 132/63 12/28/16 17:45 O2 Sat by Pulse Oximetry (%) 95 12/28/16 09:00 Labs: CBC, BMP 12/25/16 06:30 12/25/16 06:30
[2016-12-28] MEDS: ATORVASTATIN CA 10 MG TABLET (FP) PO SCH (22:02)
[2016-12-29] MEDS: CLINDAMYCIN HCL 150 MG CAPSULE (FP) PO SCH ×4 (00:20→17:48)
[2016-12-29] MEDS: PIPERACILLIN/TAZOB 3.375 GM 50 ML IVPB SCH ×3 (02:47→17:48)
[2016-12-29] MEDS: ACETAMINOPHEN 325 MG TABLET (FP) PO PRN ×2 (02:48→22:33)
[2016-12-29] MEDS: oxyCODONE HCL 5 MG TABLET PO PRN ×3 (04:27→17:53)
[2016-12-29] MEDS: metFORMIN HCL 500 MG TABLET (FP) PO SCH ×2 (06:14→17:47)
[2016-12-29] MEDS: GABAPENTIN 100 MG CAPSULE (FP) PO SCH ×3 (06:14→22:29)
[2016-12-29] MEDS ORDERED: PT OWN MED DRAWER 7, Y5N ONE (10:14)
[2016-12-29] MEDS: LISINOPRIL 5 MG TABLET (FP) PO SCH (10:22)
[2016-12-29] MEDS: FLUoxetine HCL 20 MG CAPSULE (FP) PO SCH (10:23)
[2016-12-29] MEDS: ATENOLOL 25 MG TABLET (FP) PO SCH (10:23)
[2016-12-29] MEDS: HEPARIN NA (PORCINE) 5,000 UNITS/ML 1ML VIAL SQ SCH ×2 (10:25→22:29)
[2016-12-29] MEDS: ARIPiprazole 5 MG TABLET (FP) PO SCH (12:33)
--- NOTE | 2016-12-29 15:53 | PN ---
Progress Note, Physician History of Present Illness: much better cellulitits much better weeping better scrotal cellulitits nearly resolved - Current Medication List Current Medications: Active Medications Acetaminophen (Tylenol -) 650 mg PO Q6H PRN PRN Reason: FEVER OR PAIN Last Admin: 12/29/16 02:48 Dose: 650 mg Albuterol/Ipratropium (Duoneb -) 1 amp NEB Q4H PRN PRN Reason: SHORTNESS OF BREATH Aripiprazole (Abilify) 5 mg PO DAILY [facility] Last Admin: 12/29/16 12:33 Dose: 5 mg Atenolol (Tenormin -) 25 mg PO DAILY [facility] Last Admin: 12/29/16 10:23 Dose: 25 mg Atorvastatin Calcium (Lipitor -) 10 mg PO HS [facility] Last Admin: 12/28/16 22:02 Dose: 10 mg Bupropion HCl (Wellbutrin Xl -) 300 mg PO DAILY [facility] Last Admin: 12/29/16 10:23 Dose: 300 mg Clindamycin HCl (Cleocin -) 300 mg PO Q6HPO [facility] Last Admin: 12/29/16 11:56 Dose: 300 mg Fluoxetine HCl (Prozac -) 40 mg PO DAILY [facility] Last Admin: 12/29/16 10:23 Dose: 40 mg Gabapentin (Neurontin -) 200 mg PO TID [facility] Last Admin: 12/29/16 14:02 Dose: 200 mg Heparin Sodium (Porcine) (Heparin -) 5,000 unit SQ BID [facility] Last Admin: 12/29/16 10:25 Dose: 5,000 unit Piperacillin Sod/Tazobactam Sod (Zosyn 3.375gm Ivpb (Pre-Docked)) 50 mls @ 100 mls/hr IVPB Q8H-IV [facility] PRN Reason: Protocol Last Admin: 12/29/16 10:23 Dose: 100 mls/hr Lisinopril (Prinivil) 2.5 mg PO DAILY [facility] Last Admin: 12/29/16 10:22 Dose: 2.5 mg Metformin HCl (Glucophage -) 500 mg PO BID@0700,1630 [facility] Last Admin: 12/29/16 06:14 Dose: 500 mg Oxycodone HCl (Roxicodone -) 10 mg PO Q6H PRN Last Admin: 12/29/16 11:57 Dose: 10 mg - Objective Vital Signs: Vital Signs Temperature 97.7 F 12/29/16 14:52 Pulse Rate 71 12/29/16 14:52 Respiratory Rate 20 12/29/16 14:52 Blood Pressure 111/54 12/29/16 14:52 O2 Sat by Pulse Oximetry (%) 91 L 12/29/16 09:00 Constitutional: Yes: No Distress, Calm, Obese Cardiovascular: Yes: Regular Rate and Rhythm Respiratory: Yes: Regular, CTA Bilaterally Gastrointestinal: Yes: Normal Bowel Sounds, Soft Musculoskeletal: Yes: Other Extremities: Yes: Other Integumentary: Yes: Other Wound/Incision: Yes: Dressing Dry and Intact, Other Neurological: Yes: Alert, Oriented Labs: CBC, BMP 12/25/16 06:30 12/25/16 06:30 Assessment/Plan Problem List - Problems (1) Cellulitis bilateral legs Code(s): L03.90 - CELLULITIS, UNSPECIFIED (2) COPD mixed type Code(s): J44.9 - CHRONIC OBSTRUCTIVE PULMONARY DISEASE, UNSPECIFIED (3) Diabetes Code(s): E11.9 - TYPE 2 DIABETES MELLITUS WITHOUT COMPLICATIONS (4) HLD (hyperlipidemia) Code(s): E78.5 - HYPERLIPIDEMIA, UNSPECIFIED (5) HTN (hypertension) Code(s): I10 - ESSENTIAL (PRIMARY) HYPERTENSION 6 scrotal cellulitis 7 lower abd wall cellulitits 8 leukocytosis plan continue abx elevation of legs continues to improve continue monitoring by wed will be able to switch to oral
--- NOTE | 2016-12-29 17:56 | PN ---
Progress Note, Physician History of Present Illness: FELLING BETTER - Current Medication List Current Medications: Active Medications Acetaminophen (Tylenol -) 650 mg PO Q6H PRN PRN Reason: FEVER OR PAIN Last Admin: 12/29/16 02:48 Dose: 650 mg Albuterol/Ipratropium (Duoneb -) 1 amp NEB Q4H PRN PRN Reason: SHORTNESS OF BREATH Aripiprazole (Abilify) 5 mg PO DAILY [facility] Last Admin: 12/29/16 12:33 Dose: 5 mg Atenolol (Tenormin -) 25 mg PO DAILY [facility] Last Admin: 12/29/16 10:23 Dose: 25 mg Atorvastatin Calcium (Lipitor -) 10 mg PO HS [facility] Last Admin: 12/28/16 22:02 Dose: 10 mg Bupropion HCl (Wellbutrin Xl -) 300 mg PO DAILY [facility] Last Admin: 12/29/16 10:23 Dose: 300 mg Clindamycin HCl (Cleocin -) 300 mg PO Q6HPO [facility] Last Admin: 12/29/16 17:48 Dose: 300 mg Fluoxetine HCl (Prozac -) 40 mg PO DAILY [facility] Last Admin: 12/29/16 10:23 Dose: 40 mg Gabapentin (Neurontin -) 200 mg PO TID [facility] Last Admin: 12/29/16 14:02 Dose: 200 mg Heparin Sodium (Porcine) (Heparin -) 5,000 unit SQ BID [facility] Last Admin: 12/29/16 10:25 Dose: 5,000 unit Piperacillin Sod/Tazobactam Sod (Zosyn 3.375gm Ivpb (Pre-Docked)) 50 mls @ 100 mls/hr IVPB Q8H-IV [facility] PRN Reason: Protocol Last Admin: 12/29/16 17:48 Dose: 100 mls/hr Lisinopril (Prinivil) 2.5 mg PO DAILY [facility] Last Admin: 12/29/16 10:22 Dose: 2.5 mg Metformin HCl (Glucophage -) 500 mg PO BID@0700,1630 [facility] Last Admin: 12/29/16 17:47 Dose: 500 mg Oxycodone HCl (Roxicodone -) 10 mg PO Q6H PRN Last Admin: 12/29/16 11:57 Dose: 10 mg - Objective Vital Signs: Vital Signs Temperature 97.7 F 12/29/16 14:52 Pulse Rate 71 12/29/16 14:52 Respiratory Rate 20 12/29/16 14:52 Blood Pressure 111/54 12/29/16 14:52 O2 Sat by Pulse Oximetry (%) 91 L 12/29/16 09:00 Constitutional: Yes: No Distress HENT: Yes: Atraumatic Neck: Yes: Supple Cardiovascular: Yes: Regular Rate and Rhythm Respiratory: Yes: CTA Bilaterally Gastrointestinal: Yes: Normal Bowel Sounds Extremities: Yes: Other (B/L TRAE CELLULITIS) Neurological: Yes: Alert, Oriented Labs: CBC, BMP 12/25/16 06:30 12/25/16 06:30 Problem List - Problems (1) Cellulitis Assessment/Plan: iv abx wound care id consult Code(s): L03.90 - CELLULITIS, UNSPECIFIED (2) COPD mixed type Assessment/Plan: duo nebs prn Code(s): J44.9 - CHRONIC OBSTRUCTIVE PULMONARY DISEASE, UNSPECIFIED (3) Diabetes Assessment/Plan: on bgms, insulin Code(s): E11.9 - TYPE 2 DIABETES MELLITUS WITHOUT COMPLICATIONS (4) HLD (hyperlipidemia) Assessment/Plan: on meds stable Code(s): E78.5 - HYPERLIPIDEMIA, UNSPECIFIED (5) HTN (hypertension) Assessment/Plan: on meds stable Code(s): I10 - ESSENTIAL (PRIMARY) HYPERTENSION Assessment/Plan DC PLANNING FOR THURSDAY
[2016-12-29] MEDS: ATORVASTATIN CA 10 MG TABLET (FP) PO SCH (22:29)
[2016-12-30] MEDS: oxyCODONE HCL 5 MG TABLET PO PRN ×4 (00:09→18:07)
[2016-12-30] MEDS: CLINDAMYCIN HCL 150 MG CAPSULE (FP) PO SCH ×4 (00:10→17:42)
[2016-12-30] MEDS: PIPERACILLIN/TAZOB 3.375 GM 50 ML IVPB SCH ×3 (01:56→17:41)
[2016-12-30] MEDS: GABAPENTIN 100 MG CAPSULE (FP) PO SCH ×3 (06:10→21:42)
[2016-12-30] MEDS: metFORMIN HCL 500 MG TABLET (FP) PO SCH ×2 (06:11→17:40)
[2016-12-30] MEDS ORDERED: PT OWN MED DRAWER 7, Y5N ONE ×2 (07:39→10:22)
--- NOTE | 2016-12-30 09:05 | PN ---
Progress Note, Physician History of Present Illness: patient doing well legs have improved a lot right leg still with some draiange dressing removed wound looked at abd cellulitits nearly resolved scrotal cellulitits also resolved - Current Medication List Current Medications: Active Medications Acetaminophen (Tylenol -) 650 mg PO Q6H PRN PRN Reason: FEVER OR PAIN Last Admin: 12/29/16 22:33 Dose: 650 mg Aripiprazole (Abilify) 5 mg PO DAILY [facility] Last Admin: 12/29/16 12:33 Dose: 5 mg Atenolol (Tenormin -) 25 mg PO DAILY [facility] Last Admin: 12/29/16 10:23 Dose: 25 mg Atorvastatin Calcium (Lipitor -) 10 mg PO HS [facility] Last Admin: 12/29/16 22:29 Dose: 10 mg Bupropion HCl (Wellbutrin Xl -) 300 mg PO DAILY [facility] Last Admin: 12/29/16 10:23 Dose: 300 mg Clindamycin HCl (Cleocin -) 300 mg PO Q6HPO [facility] Last Admin: 12/30/16 06:13 Dose: 300 mg Fluoxetine HCl (Prozac -) 40 mg PO DAILY [facility] Last Admin: 12/29/16 10:23 Dose: 40 mg Gabapentin (Neurontin -) 200 mg PO TID [facility] Last Admin: 12/30/16 06:10 Dose: 200 mg Piperacillin Sod/Tazobactam Sod (Zosyn 3.375gm Ivpb (Pre-Docked)) 50 mls @ 100 mls/hr IVPB Q8H-IV JEREMIAH PRN Reason: Protocol Last Admin: 12/30/16 01:56 Dose: 100 mls/hr Lisinopril (Prinivil) 2.5 mg PO DAILY [facility] Last Admin: 12/29/16 10:22 Dose: 2.5 mg Metformin HCl (Glucophage -) 500 mg PO BID@0700,1630 [facility] Last Admin: 12/30/16 06:11 Dose: 500 mg Oxycodone HCl (Roxicodone -) 10 mg PO Q6H PRN Last Admin: 12/30/16 06:10 Dose: 10 mg - Objective Vital Signs: Vital Signs Temperature 97.4 F L 12/30/16 06:42 Pulse Rate 82 12/30/16 06:42 Respiratory Rate 20 12/30/16 06:42 Blood Pressure 130/77 12/30/16 06:42 O2 Sat by Pulse Oximetry (%) 91 L 12/29/16 21:00 Constitutional: Yes: No Distress, Calm, Obese Cardiovascular: Yes: Regular Rate and Rhythm Gastrointestinal: Yes: Normal Bowel Sounds, Soft Musculoskeletal: Yes: Other Extremities: Yes: Other Edema: LLE: 2+, RLE: 2+ Integumentary: Yes: Erythema, Other (cellulitits of the ext and scrotum and abd wall better) Neurological: Yes: Alert, Oriented Psychiatric: Yes: Alert, Oriented Labs: CBC, BMP 12/25/16 06:30 12/25/16 06:30 Assessment/Plan Problem List - Problems (1) Cellulitis bilateral legs Code(s): L03.90 - CELLULITIS, UNSPECIFIED (2) COPD mixed type Code(s): J44.9 - CHRONIC OBSTRUCTIVE PULMONARY DISEASE, UNSPECIFIED (3) Diabetes Code(s): E11.9 - TYPE 2 DIABETES MELLITUS WITHOUT COMPLICATIONS (4) HLD (hyperlipidemia) Code(s): E78.5 - HYPERLIPIDEMIA, UNSPECIFIED (5) HTN (hypertension) Code(s): I10 - ESSENTIAL (PRIMARY) HYPERTENSION 6 scrotal cellulitis 7 lower abd wall cellulitits 8 leukocytosis plan continue abx elevation of legs continues to improve continue monitoring tomorrow we will switch to oral patient will need wound care
[2016-12-30] MEDS: LISINOPRIL 5 MG TABLET (FP) PO SCH (10:26)
[2016-12-30] MEDS: ARIPiprazole 5 MG TABLET (FP) PO SCH (10:26)
[2016-12-30] MEDS: FLUoxetine HCL 20 MG CAPSULE (FP) PO SCH (10:27)
[2016-12-30] MEDS: ATENOLOL 25 MG TABLET (FP) PO SCH (10:28)
--- NOTE | 2016-12-30 16:28 | PN ---
Progress Note, Physician History of Present Illness: FELLING BETTER - Current Medication List Current Medications: Active Medications Acetaminophen (Tylenol -) 650 mg PO Q6H PRN PRN Reason: FEVER OR PAIN Last Admin: 12/29/16 22:33 Dose: 650 mg Aripiprazole (Abilify) 5 mg PO DAILY [facility] Last Admin: 12/30/16 10:26 Dose: 5 mg Atenolol (Tenormin -) 25 mg PO DAILY [facility] Last Admin: 12/30/16 10:28 Dose: 25 mg Atorvastatin Calcium (Lipitor -) 10 mg PO HS [facility] Last Admin: 12/29/16 22:29 Dose: 10 mg Bupropion HCl (Wellbutrin Xl -) 300 mg PO DAILY [facility] Last Admin: 12/30/16 10:28 Dose: 300 mg Clindamycin HCl (Cleocin -) 300 mg PO Q6HPO [facility] Last Admin: 12/30/16 12:03 Dose: 300 mg Fluoxetine HCl (Prozac -) 40 mg PO DAILY [facility] Last Admin: 12/30/16 10:27 Dose: 40 mg Gabapentin (Neurontin -) 200 mg PO TID [facility] Last Admin: 12/30/16 14:32 Dose: 200 mg Piperacillin Sod/Tazobactam Sod (Zosyn 3.375gm Ivpb (Pre-Docked)) 50 mls @ 100 mls/hr IVPB Q8H-IV JEREMIAH PRN Reason: Protocol Last Admin: 12/30/16 10:28 Dose: 100 mls/hr Lisinopril (Prinivil) 2.5 mg PO DAILY [facility] Last Admin: 12/30/16 10:26 Dose: 2.5 mg Metformin HCl (Glucophage -) 500 mg PO BID@0700,1630 [facility] Last Admin: 12/30/16 06:11 Dose: 500 mg Oxycodone HCl (Roxicodone -) 10 mg PO Q6H PRN Last Admin: 12/30/16 12:04 Dose: 10 mg - Objective Vital Signs: Vital Signs Temperature 97.1 F L 12/30/16 08:20 Pulse Rate 82 12/30/16 14:25 Respiratory Rate 16 12/30/16 14:25 Blood Pressure 120/70 12/30/16 14:25 O2 Sat by Pulse Oximetry (%) 98 12/30/16 09:00 Constitutional: Yes: No Distress HENT: Yes: Atraumatic Neck: Yes: Supple Cardiovascular: Yes: Regular Rate and Rhythm Respiratory: Yes: CTA Bilaterally Gastrointestinal: Yes: Normal Bowel Sounds Extremities: Yes: Other (cellulitis b/l loi improving) Neurological: Yes: Alert, Oriented Labs: CBC, BMP 12/25/16 06:30 12/25/16 06:30 Problem List - Problems (1) Cellulitis Assessment/Plan: iv abx wound care id consult Code(s): L03.90 - CELLULITIS, UNSPECIFIED (2) COPD mixed type Assessment/Plan: duo nebs prn Code(s): J44.9 - CHRONIC OBSTRUCTIVE PULMONARY DISEASE, UNSPECIFIED (3) Diabetes Assessment/Plan: on bgms, insulin Code(s): E11.9 - TYPE 2 DIABETES MELLITUS WITHOUT COMPLICATIONS (4) HLD (hyperlipidemia) Code(s): E78.5 - HYPERLIPIDEMIA, UNSPECIFIED (5) HTN (hypertension) Code(s): I10 - ESSENTIAL (PRIMARY) HYPERTENSION
[2016-12-30] MEDS: ATORVASTATIN CA 10 MG TABLET (FP) PO SCH (21:42)
[2016-12-31] MEDS: CLINDAMYCIN HCL 150 MG CAPSULE (FP) PO SCH ×5 (00:34→23:58)
[2016-12-31] MEDS: oxyCODONE HCL 5 MG TABLET PO PRN ×5 (00:35→23:58)
[2016-12-31] MEDS: PIPERACILLIN/TAZOB 3.375 GM 50 ML IVPB SCH ×3 (02:35→17:40)
[2016-12-31] MEDS: GABAPENTIN 100 MG CAPSULE (FP) PO SCH ×3 (06:27→21:26)
[2016-12-31] MEDS: metFORMIN HCL 500 MG TABLET (FP) PO SCH ×2 (06:28→17:39)
[2016-12-31] MEDS ORDERED: PT OWN MED DRAWER 7, Y5N ONE (10:15)
[2016-12-31] MEDS: FLUoxetine HCL 20 MG CAPSULE (FP) PO SCH (10:59)
[2016-12-31] MEDS: LISINOPRIL 5 MG TABLET (FP) PO SCH (10:59)
[2016-12-31] MEDS: ARIPiprazole 5 MG TABLET (FP) PO SCH (10:59)
[2016-12-31] MEDS: ATENOLOL 25 MG TABLET (FP) PO SCH (10:59)
[2016-12-31] MEDS: ACETAMINOPHEN 325 MG TABLET (FP) PO PRN ×2 (11:16→17:44)
--- NOTE | 2016-12-31 12:00 | PN ---
Progress Note, Physician History of Present Illness: stable no new issues dressing removed wound looked at patient continues to improve - Current Medication List Current Medications: Active Medications Acetaminophen (Tylenol -) 650 mg PO Q6H PRN PRN Reason: FEVER OR PAIN Last Admin: 12/31/16 11:16 Dose: 650 mg Aripiprazole (Abilify) 5 mg PO DAILY [facility] Last Admin: 12/31/16 10:59 Dose: 5 mg Atenolol (Tenormin -) 25 mg PO DAILY [facility] Last Admin: 12/31/16 10:59 Dose: 25 mg Atorvastatin Calcium (Lipitor -) 10 mg PO HS [facility] Last Admin: 12/30/16 21:42 Dose: 10 mg Bupropion HCl (Wellbutrin Xl -) 300 mg PO DAILY [facility] Last Admin: 12/31/16 10:58 Dose: 300 mg Clindamycin HCl (Cleocin -) 300 mg PO Q6HPO [facility] Last Admin: 12/31/16 11:08 Dose: 300 mg Fluoxetine HCl (Prozac -) 40 mg PO DAILY [facility] Last Admin: 12/31/16 10:59 Dose: 40 mg Gabapentin (Neurontin -) 200 mg PO TID [facility] Last Admin: 12/31/16 06:27 Dose: 200 mg Piperacillin Sod/Tazobactam Sod (Zosyn 3.375gm Ivpb (Pre-Docked)) 50 mls @ 100 mls/hr IVPB Q8H-IV JEREMIAH PRN Reason: Protocol Last Admin: 12/31/16 10:58 Dose: 100 mls/hr Lisinopril (Prinivil) 2.5 mg PO DAILY [facility] Last Admin: 12/31/16 10:59 Dose: 2.5 mg Metformin HCl (Glucophage -) 500 mg PO BID@0700,1630 [facility] Last Admin: 12/31/16 06:28 Dose: 500 mg Oxycodone HCl (Roxicodone -) 10 mg PO Q6H PRN Last Admin: 12/31/16 11:15 Dose: 10 mg - Objective Vital Signs: Vital Signs Temperature 98.6 F 12/31/16 07:08 Pulse Rate 80 12/31/16 07:08 Respiratory Rate 20 12/31/16 07:08 Blood Pressure 123/72 12/31/16 07:08 O2 Sat by Pulse Oximetry (%) 98 12/30/16 21:00 Constitutional: Yes: No Distress, Calm, Obese Cardiovascular: Yes: Regular Rate and Rhythm Respiratory: Yes: Regular, CTA Bilaterally Gastrointestinal: Yes: Normal Bowel Sounds, Soft Musculoskeletal: Yes: Other Extremities: Yes: Other Edema: LLE: 1+, RLE: 1+ Integumentary: Yes: Erythema Wound/Incision: Yes: Other (wounds healing well) Neurological: Yes: Alert, Oriented Psychiatric: Yes: Alert, Oriented Labs: CBC, BMP 12/25/16 06:30 12/25/16 06:30 Assessment/Plan Problem List - Problems (1) Cellulitis bilateral legs Code(s): L03.90 - CELLULITIS, UNSPECIFIED (2) COPD mixed type Code(s): J44.9 - CHRONIC OBSTRUCTIVE PULMONARY DISEASE, UNSPECIFIED (3) Diabetes Code(s): E11.9 - TYPE 2 DIABETES MELLITUS WITHOUT COMPLICATIONS (4) HLD (hyperlipidemia) Code(s): E78.5 - HYPERLIPIDEMIA, UNSPECIFIED (5) HTN (hypertension) Code(s): I10 - ESSENTIAL (PRIMARY) HYPERTENSION 6 scrotal cellulitis 7 lower abd wall cellulitits 8 leukocytosis plan continue abx elevation of legs continues to improve continue monitoring patient will need wound care can switch him tomorrow to oral augmentin 500 mg po twice a day for another 10 days also clinda 300 mg every 8 hourly for 10 more days
--- NOTE | 2016-12-31 16:59 | PN ---
Progress Note, Physician History of Present Illness: FELLING BETTER - Current Medication List Current Medications: Active Medications Acetaminophen (Tylenol -) 650 mg PO Q6H PRN PRN Reason: FEVER OR PAIN Last Admin: 12/31/16 11:16 Dose: 650 mg Aripiprazole (Abilify) 5 mg PO DAILY [facility] Last Admin: 12/31/16 10:59 Dose: 5 mg Atenolol (Tenormin -) 25 mg PO DAILY [facility] Last Admin: 12/31/16 10:59 Dose: 25 mg Atorvastatin Calcium (Lipitor -) 10 mg PO HS [facility] Last Admin: 12/30/16 21:42 Dose: 10 mg Bupropion HCl (Wellbutrin Xl -) 300 mg PO DAILY [facility] Last Admin: 12/31/16 10:58 Dose: 300 mg Clindamycin HCl (Cleocin -) 300 mg PO Q6HPO [facility] Last Admin: 12/31/16 11:08 Dose: 300 mg Fluoxetine HCl (Prozac -) 40 mg PO DAILY [facility] Last Admin: 12/31/16 10:59 Dose: 40 mg Gabapentin (Neurontin -) 200 mg PO TID [facility] Last Admin: 12/31/16 13:29 Dose: 200 mg Piperacillin Sod/Tazobactam Sod (Zosyn 3.375gm Ivpb (Pre-Docked)) 50 mls @ 100 mls/hr IVPB Q8H-IV JEREMIAH PRN Reason: Protocol Last Admin: 12/31/16 10:58 Dose: 100 mls/hr Lisinopril (Prinivil) 2.5 mg PO DAILY [facility] Last Admin: 12/31/16 10:59 Dose: 2.5 mg Metformin HCl (Glucophage -) 500 mg PO BID@0700,1630 [facility] Last Admin: 12/31/16 06:28 Dose: 500 mg Oxycodone HCl (Roxicodone -) 10 mg PO Q6H PRN Last Admin: 12/31/16 11:15 Dose: 10 mg - Objective Vital Signs: Vital Signs Temperature 98.4 F 12/31/16 15:00 Pulse Rate 49 L 12/31/16 15:00 Respiratory Rate 16 12/31/16 15:00 Blood Pressure 98/57 12/31/16 15:00 O2 Sat by Pulse Oximetry (%) 98 12/31/16 09:00 Constitutional: Yes: No Distress HENT: Yes: Atraumatic Neck: Yes: Supple Cardiovascular: Yes: Regular Rate and Rhythm Respiratory: Yes: CTA Bilaterally Gastrointestinal: Yes: Normal Bowel Sounds Extremities: Yes: Other (cellulits b/l loi improving) Neurological: Yes: Alert, Oriented Labs: CBC, BMP 12/25/16 06:30 12/25/16 06:30 Problem List - Problems (1) Cellulitis Assessment/Plan: iv abx wound care id consult Code(s): L03.90 - CELLULITIS, UNSPECIFIED (2) COPD mixed type Assessment/Plan: duo nebs prn Code(s): J44.9 - CHRONIC OBSTRUCTIVE PULMONARY DISEASE, UNSPECIFIED (3) Diabetes Assessment/Plan: on bgms, insulin Code(s): E11.9 - TYPE 2 DIABETES MELLITUS WITHOUT COMPLICATIONS (4) HLD (hyperlipidemia) Code(s): E78.5 - HYPERLIPIDEMIA, UNSPECIFIED (5) HTN (hypertension) Code(s): I10 - ESSENTIAL (PRIMARY) HYPERTENSION Assessment/Plan Laboratory Tests 12/22/16 12/22/16 12/22/16 05:37 05:37 05:37 WBC 12.1 H RBC 4.32 Hgb 11.8 Hct 38.0 MCV 88.0 MCHC 30.9 L RDW 17.5 H Plt Count 213 MPV 7.4 L D Neutrophils % 85.8 H Lymphocytes % 5.8 L Monocytes % 6.7 Eosinophils % 1.1 Basophils % 0.6 D-Dimer 372 H Sodium 129 L Potassium 5.8 H Chloride 95 L Carbon Dioxide 22 D Anion Gap 12 BUN 34 H D Creatinine 1.8 H D Creat Clearance w eGFR 39.82 Random Glucose 111 H D Calcium 8.2 L Total Bilirubin 1.0 D AST 20 D ALT 16 Alkaline Phosphatase 176 H Creatine Kinase 51 Troponin I < 0.02 Total Protein 7.2 Albumin 3.1 L
[2016-12-31 19:11] LABS: BASOPHIL 1.1 % (0-2.0); EOSINOPHIL 3.6 % (0-4.5); MCH 27.2 pg (25.7-33.7); MEAN CELL VOLUME 87.7 fl (80-96); MEAN PLT VOLUME 7.3 fl (7.5-11.1); NEUTROPHILS 79.2 % (42.8-82.8); PLATELET COUNT 239 K/MM3 (134-434); RDW 16.4 % (11.9-15.9)
[2016-12-31 20:09] LABS: ALBUMIN 3.1 g/dl (3.4-5.0); BILIRUBIN,TOTAL 1.1 mg/dL (0.2-1.0); CALCIUM 9.1 mg/dL (8.5-10.1); COCKROFT - GAULT 183.1; CREATININE 1.3 mg/dL (0.7-1.3); TOT PROT 7.6 g/dl (6.4-8.2)
[2016-12-31] MEDS: ATORVASTATIN CA 10 MG TABLET (FP) PO SCH (21:26)
[2017-01-01] MEDS: PIPERACILLIN/TAZOB 3.375 GM 50 ML IVPB SCH ×2 (01:45→09:34)
[2017-01-01] MEDS ORDERED: oxyCODONE HCL 5 MG TABLET ONE (06:08)
[2017-01-01] MEDS: CLINDAMYCIN HCL 150 MG CAPSULE (FP) PO SCH (06:12)
[2017-01-01] MEDS: metFORMIN HCL 500 MG TABLET (FP) PO SCH (06:12)
[2017-01-01] MEDS: oxyCODONE HCL 5 MG TABLET PO PRN (06:13)
[2017-01-01] MEDS: GABAPENTIN 100 MG CAPSULE (FP) PO SCH (06:13)
[2017-01-01] MEDS ORDERED: PT OWN MED DRAWER 7, Y5N ONE (09:29)
[2017-01-01] MEDS: ATENOLOL 25 MG TABLET (FP) PO SCH (09:35)
[2017-01-01] MEDS: LISINOPRIL 5 MG TABLET (FP) PO SCH (09:36)
[2017-01-01] MEDS: ARIPiprazole 5 MG TABLET (FP) PO SCH (09:37)
[2017-01-01] MEDS: FLUoxetine HCL 20 MG CAPSULE (FP) PO SCH (09:37)
[2017-01-01 10:14] VITALS: BP 116/61; PULSE 61; TEMP 98.1
--- NOTE | 2017-01-02 18:10 | DS ---
Physical Examination Vital Signs: Vital Signs Temperature 98.1 F 01/01/17 09:00 Pulse Rate 61 01/01/17 09:00 Respiratory Rate 18 01/01/17 09:00 Blood Pressure 116/61 01/01/17 09:00 O2 Sat by Pulse Oximetry (%) 98 01/01/17 09:00 Labs: CBC, BMP 12/31/16 18:00 12/31/16 18:00 Discharge Summary Reason For Visit: DM,CELLULITIS Condition: Stable - Instructions Diet, Activity, Other Instructions: Activity as tolerated sock both legs in warm salt water or NS ,then dress with dry kerlex and wrap with jsoe bandage daily may take shower Follow up in wound care Diabetic diet Referrals: Svetlana Etienne MD [Primary Care Provider] - Disposition: VNS/HOME HEALTH CARE - Home Medications Comprehensive Discharge Medication List: Ambulatory Orders Aripiprazole [Abilify] 5 mg PO DAILY 07/26/14 Atenolol [Tenormin -] 25 mg PO DAILY 07/26/14 Bupropion HCl [Wellbutrin Xl -] 300 mg PO DAILY 07/26/14 Fluoxetine HCl [Prozac -] 40 mg PO DAILY 07/26/14 Metformin HCl 500 mg PO DAILY 10/29/16 Atorvastatin Calcium [Lipitor] 10 mg PO HS 11/29/16 Cholecalciferol (Vitamin D3) [Vitamin D3 -] 1,000 unit PO DAILY 11/29/16 Fluticasone/Vilanterol [Breo Ellipta 100-25 Mcg INH] 1 each IH DAILY 11/29/16 Lisinopril [Zestril] 2.5 mg PO DAILY 11/29/16 Multivitamin [Poly-Vitamin] 1 each PO DAILY 11/29/16 Oxycodone HCl/Acetaminophen [Percocet 5-325 mg Tablet] 1 - 2 tab PO Q6H #10 tablet MDD 5 11/29/16 Silver Sulfadiazine [Silvadene] 1 applic TP BID 11/29/16 Amox-Tr/K Cl [Augmentin - 875Mg Tablet] 1 tab PO BID #20 tablet 12/31/16 Clindamycin [Cleocin -] 300 mg PO TID #30 capsule 12/31/16 Gabapentin [Neurontin] 300 mg PO BID #60 capsule 12/31/16 dc home DC DATE IS 01/01/17
== END 2017-01-01 10:42 | disposition home health service (06) | DRG 603 ==
LOC: JER 04:53 → JERBED 11:26 → J8W 15:41
PROVIDERS: ADMIT Internal Medicine; ATTEND Internal Medicine
DX: L03.116 Cellulitis of left lower limb (principal); L03.311 Cellulitis of abdominal wall; Z68.44 Body mass index [BMI] 60.0-69.9, adult; L03.115 Cellulitis of right lower limb; E11.9 Type 2 diabetes mellitus without complications; I10 Essential (primary) hypertension; J44.9 Chronic obstructive pulmonary disease, unspecified; E78.5 Hyperlipidemia, unspecified; N49.2 Inflammatory disorders of scrotum; D72.829 Elevated white blood cell count, unspecified; E66.01 Morbid (severe) obesity due to excess calories
CPT/HCPCS: 36415; 71020-TC; 72192-TC; 73700-TC-RT; 80053; 82550; 84484; 85025; 85379; 87081; 93005; 93010; 93970-TC; 99285-25; J1644